=== PATIENT | female | born 2005 | race Caucasian/White ===

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

== ENCOUNTER 2025-03-04 15:32 | Emergency (ER) | payer BC, SELFPAY ==
[2025-03-04] VITALS (7 sets, daily range): BP systolic 94–118; BP diastolic 61–80; PULSE 78–93; RESP 17–18; TEMP 37.6–38.5; O2SAT 97–100; BMI 21.3
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
[2025-03-04] MEDS: 0.9% Normal Saline (1000mL) 1,000 ML 999 ML IV (16:08)
[2025-03-04 16:19] LABS: Hematocrit 43.2 % (37-47); Hemoglobin 14.4 g/dL (12.0-15.0); Immature Granulocytes Count 0.030 X10^3/uL (0.0-0.0); Mean Corp Hgb Conc 33.3 g/dL (32-36); Mean Corpuscular Volume 89.4 fL (81-99); Mean Platelet Vol. 10.3 fl (6.2-12.0); NRBC Flagged by Analyzer 0 % (0-5); Platelet Count 194 K/mm3 (150-450); RBC Distribution Width CV 11.7 % (11.6-14.6); RBC Distribution Width SD 38.1 fl (35.1-43.9); Red Blood Count 4.83 M/mm3 (4.2-5.4); White Blood Count 5.9 K/mm3 (4.4-11.0)
[2025-03-04 16:19] LABS: Mucous, Urine 0 SEEN /hpf (<or=2+)
[2025-03-04 16:20] LABS: Internal QC Validated? YES +Cl - CLEAR BKGD; Pregnancy, Serum, hCG Quali. NEGATIVE Negative; Record Kit Lot#, Serum Preg. 980607
[2025-03-04 16:28] LABS: Color, Urine Yellow (Yellow); Glucose, Dipstick Normal (Normal); Ketone-Dipstick 15 mg/dl (Negative); Leukocyte Esterase-Dipstick 500 /ul (Negative); Nitrite-Dipstick Negative (Negative); Occult Blood-Urine 50 /ul (Negative); Protein-Dipstick 100 mg/dl (Negative); Specific Gravity, Urine 1.025 (1.002-1.030); Urine Bilirubin Dipstick Negative (Negative)
--- OUTSIDE RECORDS SUMMARY | 2025-03-04 16:30 | XMS RPT_ITS | CCD ---
Author Organization [facility] Care Team Providers Care Relocation Counselor Name Role Phone Denzel Whalen MD Primary Care Provider Dr. Denzel Whalen Primary Care Provider Dr. Denzel Whalen Referring Provider CUONG Majano Attending Provider Denzel Whalen MD Primary Care Provider DENZEL WHALEN Primary Care Unavailable PROVIDER, UNKNOWN Referring Unavailable DENZEL WHALEN Primary Care Unavailable PROVIDER, UNKNOWN Attending Unavailable PROVIDER, UNKNOWN Admitting Unavailable Sementi, Cceilia Hennessy Admitting Unavaila ble Semenmark, Cecilia Hennessy Attending Unavaila ble Denzel Whalen Primary Care Unavailable Denzel Whalen Primary Care Unavailable Denzel Whalen Referring Unavailable Dorian Majano Attending Unavailable Cecilia Mcnamara Consulting Unavaila ble ChicAdriana brizuela Attending Unavailab le Adriana Bryant Referring Unavailab Denzel Reddy Primary Care Unavailable Denzel Whalen Primary Care Unavailable Adriana Bryant Attending Unavailab le Adriana Bryant Referring Unavailab Dr. Denzel Reddy Primary Care Provider Semenmark, Dr. Cecilia Hennessy Admit Provider Semenmark, Dr. Cecilia Hennessy Attending Provider Semenmark, Dr. Cecilia Hennessy Other Provider Unavailable Primary Care Provider Unavailabl e Provider, Unlisted Primary Care Provider Unavail able Denzel Whalen MD Primary Care Provider [facility] Referring Un available STRONG, DENZEL H Primary Care Unavailable CARMEN NOLASCO Attending Unavailabl e STRONG, DENZEL H Primary Care Unavailable ARIAN ANDRES Attending Unavailable STRONG, DENZEL H Primary Care Unavailable ARIAN ANDRES Attending Unavailable MARYLU BURTON Admitting Unavailable ARIAN BAIG Consulting Unavai ceciliale STRONG, DENZEL H Primary Care Unavailable HAWRYLUK, ARIAN Attending Unavailable STRONG, DENZEL H Primary Care Unavailable [place], [facility] Referring Un available ARIAN ANDRES Attending Unavailable STRONG, DENZEL H Primary Care Unavailable HAWRYLUK, ARIAN Attending Unavailable STRONG, DENZEL H Primary Care Unavailable Provider MD, Unlisted Primary Care Provider Unav ailable Karan [id number] PT, DPT, Charly Unavailable Puja vailable PROVIDER, UNLISTED Primary Care Unavailable PROVIDER, UNLISTED Primary Care Unavailable STRONG, DENZEL H Referring Unavailable PROVIDER, UNLISTED Primary Care Unavailable GEM HUTTON Attending Unavailable JAKE RIBEIRO Attending Unavailable JAKE RIBEIRO Referring Unavailable PROVIDER, UNLISTED Primary Care Unavailable JAKE RIBEIRO Attending Unavailable JAKE RIBEIRO Referring Unavailable PROVIDER, UNLISTED Primary Care Unavailable BARRIE ALDANA Attending Unavailable BARRIE ALDANA Referring Unavailable PROVIDER, UNLISTED Primary Care Unavailable JAKE RIBEIRO Attending Unavailable JAKE RIBEIRO Referring Unavailable PROVIDER, UNLISTED Primary Care Unavailable JESSICA GOULD Attending Unavailable JESSICA GOULD Referring Unavailable PROVIDER, UNLISTED Primary Care Unavailable JESSICA GOULD Attending Unavailable JESSICA GOULD Referring Unavailable PROVIDER, UNLISTED Primary Care Unavailable PROVIDER, UNLISTED Primary Care Unavailable JESSICA GOULD Attending Unavailable Denzel Whalen MD Primary Care Provider [phone] DANIKA MATA Attending Unavailable STRONG, DENZEL H Primary Care Unavailable EZEKIEL GONZALEZ Referring Unavailable JEOVANY LUBIN Attending Unavailable STRONG, DENZEL H Primary Care Unavailable ARIADNA BAILEY Attending Unavailable TRISTIANJEOVANY Referring Unavailable STRONG, DENZEL H Primary Care Unavailable FILIBERTO JIMENEZ Attending Unavailable STRONG, DENZEL H Primary Care Unavailable STRONG, DENZEL H Primary Care Unavailable WENDIE BERRY Referring Unavailable WENDIE BERRY Attending Unavailable STRONG, DENZEL H Primary Care Unavailable WENDIE BERRY Attending Unavailable EZEKIEL GONZALEZ Attending Unavailable STRONG, DENZEL H Referring Unavailable STRONG, DENZEL H Primary Care Unavailable EZEKIEL GONZALEZ Attending Unavailable STRONG, DENZEL H Referring Unavailable STRONG, DENZEL H Primary Care Unavailable STRONG DENZEL H Attending Unavailable STRONG, DENZEL H Primary Care Unavailable STRONG, DENZEL H Referring Unavailable DENZEL WHALEN Primary Care Unavailable Medications Current Medications Medication Drug Class(es) Dates Sig (Normalized) Sig (Original) acetaminophen 325 mg oral tablet (20 sources) Start: 05-13-2024 End: 05-13-2024 1,000 mg, Intravenous, Administer over 15 Minutes, On Sada 05/13/24 at 0834, ONCE, 1 dose Start: 05-10-2024 End: 05-10-2024 500 mg, Oral, NOW, 1 dose, O n 05/10/24 at 1959 Start: 04-02-2023 take 3 tablets by mo uth every six hours acetaminophen (TYLENOL) 325 mg tablet 3 tablets by ORAL/FEEDING TUBE route every 6 hours. 04/02/2023 Active Start: 04-02-2023 End: 04-10-2023 take 2 tablets by mouth every eight hours as needed for pain, then take 2 tablets by mouth every six hours as needed for pain Acetaminophen (Acetaminophen Extra Strength) 500 mg tablet Active 1000 MG PO EVERY 8 HOURS April 10, 2023 11:19am Continue every 8 hours until you have been off narcotics for 1 week and after 1 week you can take 1,000 mg every 6 hours as needed for pain. End: 06-09-2023 take 2 tablets by mouth every six hours as needed acetaminophen (TYLENOL) 325 mg tablet Take 650 mg by mouth every 6 hours as needed for pain. 0 06/09/2023 Discontinued Comment on above: 3 tablets by ORAL/FE EDING TUBE route every 6 hours. Take 650 mg by mouth every 6 hours as needed for pain. acetaminophen 325 mg / butalbital 50 mg / caffeine 40 mg oral tablet (3 sources) Barbiturate, Central Nervous System Stimulant, Methylxanthine Start: 024 End: 025 take 1 tablet by mouth every four hours as needed for headache, then take 6 tablets by mouth every twenty-four hours as needed for headache Ldwwqljtcp-ICXP-Ftpzx ine (FIORICET) 50-325-40 MG per tablet Indications: Nonintractable headache, unspecified chronicity pattern, unspecified headache type Take 1 tablet by mouth every 4 hours as needed for Headaches. Do Not exceed 6 tablets in 24 hours 30 tablet 07/17/2023 05/13/2024 Discontinued (Therapy completed) amoxicillin 875 mg / clavulanate 125 mg oral tablet (1 source) Penicillin-class Antibacterial Start: End: take 1 tablet by mouth twice daily amoxicillin-clavulani c acid (AUGMENTIN) 875-125 mg per tablet Indications: Sinusitis, unspecified chronicity, unspecified location Take 1 tablet by mouth twice daily for 5 days. 10 tablet 0 06/27/2022 07/02/2022 Active Comment on above: Take 1 tablet by tolu th twice daily for 5 days. diclofenac potassium 50 mg oral tablet (1 source) Nonsteroidal Anti-inflammatory Drug Start: take 50 mg by mouth twice daily at mealtime Diclofenac Potassium Active 50 MG PO TWICE A DAY April 10, 2023 12:00am Take with food doxycycline monohydrate 100 mg oral capsule (1 source) Tetracycline-class Drug Start: End: take 1 capsule by mouth twice daily doxycycline monohydrate (MONODOX) 100 mg capsule Indications: Chlamydia infection Take 1 capsule by mouth two times a day for 7 days. 14 capsule 11/24/2023 12/01/2023 Active fluticasone propionate 0.05 mg/actuat metered dose nasal spray (2 sources) Corticosteroid Start: End: take 2 spray(s) nasal route once daily fluticasone (FLONASE ALLERGY RELIEF) 50 mcg/actuation nasal spray Indications: Nasal congestion , Tonsillar hypertrophy Use 2 Sprays in each nostril once daily. 1 Each 2 06/27/2022 07/27/2022 Active Comment on above: Use 2 Sprays in each nostril once daily. Multiple Vitamins-Minerals (MULTI COMPLETE) CAPS (4 sources) Multiple Vitamins-Minerals (MULTI COMPLETE) CAPS Take by mouth. Active MULTIVITAMIN ORAL (20 sources) take 1 tablet by mouth once daily MULTIVITAMIN ORAL Take 1 tablet by mouth once daily. Active take 1 tablet by mouth once az y MULTIVITAMIN ORAL Take 1 tablet by mouth once daily. 0 Active MULTIVITAMIN ORA L Take by mouth. 0 Suspended MULTIVITAMIN ORA L Take by mouth. 0 Active Comment on above: Take by mouth. Take 1 tablet by tolu th once daily. [place] (Nk) (1 source) Start: 01-19-20 [place] (Nk) Active January 18, 2021 12:00am ondansetron 4 mg disintegrating oral tablet (9 sources) Serotonin-3 Receptor Antagonist Start: 05-13-19 take 1 tablet by mouth every eight hours as needed Ondansetron (ZOFRAN-ODT) 4 MG disintegrating tablet Take 1 tablet by mouth every 8 hours as needed for Nausea and/or Vomiting. Dissolve on tongue then swallow. 20 tablet 05/13/2024 Active Start: 05-13-2024 End: 05-13-2024 4 mg, IV Push, NOW, 1 dose, On Sada 05/13/24 at 0305, Caution: This medication looks and/or sounds like another medication. Start: 04-02-2023 End: 06-09-2023 take 4 mg intravenously every six hours as needed ondansetron, PF, (ZOFRAN) 4 mg/2 mL soln Inject 4 mg intravenously every 6 hours as needed. 0 04/02/2023 06/09/2023 Discontinued Start: 04-02-2023 End: 06-09-2023 take 1 tablet by mouth every six hours as needed ondansetron (ZOFRAN) 4 mg tablet Take 1 tablet by mouth every 6 hours as needed. 0 04/02/2023 06/09/2023 Discontinued Comment on above: Take 1 tablet by tolu every 6 hours as needed. Inject 4 mg intraven ously every 6 hours as needed. 12 hr orphenadrine citrate 100 mg extended release oral tablet (4 sources) Muscle Relaxant Start: 05-10-19 End: 05-15-19 take 1 tablet by mouth twice daily as needed orphenadrine (NORFLEX) 100 MG tablet Take 1 tablet by mouth 2 times daily as needed for up to 5 days. 10 tablet 05/10/2024 05/15/2024 Active oxyCODONE hydrochloride 5 mg oral tablet (3 sources) Opioid Agonist Start: 04-10-19 take 5 mg by mouth every four hours as needed Oxycodone Active 5 MG PO EVERY 4 HOURS NEEDED 30 7 April 10, 2023 Start: 04-10-2023 End: 06-09-2023 oxyCODONE 10 mg/0.5 mL syrg EVERY 4 HOURS NEEDED 0 04/10/2023 06/09/2023 Discontinued Comment on above: EVERY 4 HOURS NEE DED prednisoLONE 3 mg/ml oral solution (2 sources) Corticosteroid Start: 01-10-20 End: 01-15-20 take 15 mL by mouth once daily prednisoLONE sodium phosphate (ORAPRED) 15 mg/5 mL (3 mg/mL) oral liquid Take 15 mL by mouth once daily for 5 days. 75 mL 0 01/09/2022 01/14/2022 Active Comment on above: Take 15 mL by mouth once daily for 5 days. predniSONE 20 mg oral tablet (1 source) Start: 04-30-19 End: 05-03-19 take 2 tablets by mouth once daily predniSONE (DELTASONE) 20 mg tablet Indications: Tonsillar hypertrophy Take 2 tablets by mouth once daily for 3 days. 6 tablet 0 04/30/2022 05/03/2022 Active Comment on above: Take 2 tablets by [facility] once daily for 3 days. topiramate 100 mg oral tablet (20 sources) Start: 09-30-19 take 1 tablet by mouth once daily at bedtime topiramate (TOPAMAX) 100 mg tablet Take 1 tablet by mouth daily at bedtime. 90 tablet 3 09/29/2024 Active Start: 03-23-2024 End: 09-24-2024 take 1 tablet by mouth once daily at bedtime topiramate (TOPAMAX) 100 mg tablet Take 1 tablet by mouth daily at bedtime. 90 tablet 3 08/09/2024 09/24/2024 Discontinued Start: 08-19-2023 End: 06-18-2024 topiramate (TOPAMAX) 25 mg t ablet 25 mg (1 tab) at bed x 2 wks, then 50 mg at bed (2 tabs) x 2 wks, then 75 mg at bed (3 tabs) x 2 wks 84 tablet 08/19/2023 06/18/2024 Discontinued Start: 08-19-2023 End: 03-21-2024 take 1 tablet by mouth once daily at bedtime topiramate (TOPAMAX) 100 mg tablet Take 1 tablet by mouth daily at bedtime. 30 tablet 2 12/26/2023 03/21/2024 Discontinued Completed/Discontinued Medications Medication Drug Class(es) Dates Sig (Normalized) Sig (Original) acetaminophen 325 mg / HYDROcodone bitartrate 5 mg oral tablet (2 sources) Opioid Agonist Start: 02-24-2019 End: 03-04-2019 take 1-2 tablets by mouth every six hours as needed Hydrocodone-Acetami nophen Discontinued 1 - 2 TABLET PO EVERY 6 HOURS NEEDED 40 5 February 24, 2019 March 04, 2019 12:08am stop all other narcotics and tylenol products acetaminophen 325 mg / oxyCODONE hydrochloride 5 mg oral tablet (2 sources) Opioid Agonist Start: 05-12-2020 End: 05-17-2020 take 1 tablet by mouth every six hours as needed Oxycodone-Acetamino phen Discontinued 1 - 2 TABLET PO EVERY 6 HOURS NEEDED 28 May 12, 2020 May 17, 2020 12:03am azelaic acid 150 mg/ml topical foam (15 sources) Start: 03-22-2020 FINACEA 15 % foam as needed. 0 03/22/2020 Suspended Comment on above: as needed. bacitracin 0.5 unt/mg topical ointment (3 sources) Start: 04-02-2023 End: 06-09-2023 bacitracin 500 unit/gram ointment Apply to affected area two times a day. 0 04/02/2023 06/09/2023 Discontinued Start: 04-02-2023 End: 04-10-2023 Bacitracin Discontinued 1 AP PLIC TOPICAL TWICE A DAY April 02, 2023 12:00am April 10, 2023 11:08am Comment on above: Apply to affected ar ea two times a day. betamethasone 3 mg/ml / betamethasone acetate 3 mg/ml injectable suspension (2 sources) Corticosteroid Start: 10-01-2023 End: 10-01-2023 betamethasone acetate-betamethasone sodium phosphate 3 mg injection (CELESTONE) 30 ml bupivacaine hydrochloride 5 mg/ml injection (5 sources) Amide Local Anesthetic Start: 10-29-2023 End: 10-29-2023 BUPivacaine (PF) 0.5 % (5 mg/mL) 2 mL injection Start: 10-01-2023 End: 10-01-2023 BUPivacaine (PF) 0.5 % (5 mg /mL) 2 mL injection Start: 09-18-2022 End: 06-14-2023 BUPivacaine (PF) 0.5 % (5 mg /mL) 1 mL injection 1 ml dexamethasone phosphate 4 mg/ml injection (2 sources) Corticosteroid Start: 10-29-2023 End: 10-29-2023 dexAMETHasone sodium phosphate 4 mg injection (DECADRON) 0.3 ml enoxaparin sodium 100 mg/ml prefilled syringe (3 sources) Low Molecular Weight Heparin Start: 04-02-2023 End: 06-09-2023 inject 0.3 mL by subcutaneous injection twice daily enoxaparin (LOVENOX) 30 mg/0.3 mL injection Inject 0.3 mL subcutaneously two times a day. 0 04/02/2023 06/09/2023 Discontinued Start: 04-02-2023 End: 04-10-2023 Enoxaparin (Lovenox) 40 mg/0 .4 mL syringe Discontinued 40 MG SC DAILY April 02, 2023 12:00am April 10, 2023 11:08am Comment on above: Inject 0.3 mL subcutaneously two times a day. 1 ml galcanezumab-gn lm 120 mg/ml auto-injector (16 sources) Start: 02-08-20 End: 09-20-19 inject 1 mL by subcutaneous injection every month galcanezumab-gnlm (EMGALITY PEN) 120 mg/mL pen Indications: Intractable chronic migraine without aura and without status migrainosus Inject 1 mL subcutaneously once every month. Do not shake. 1 mL 5 03/23/2024 09/01/2024 Discontinued Start: 01-08-2024 End: 01-08-2024 galcanezumab-gnlm (EMGALITY PEN) 120 mg/mL pen Indications: Intractable chronic migraine without aura and without status migrainosus Inject 2 mL subcutaneously one time only for 1 dose. Do not shake. 2 mL 01/08/2024 01/08/2024 ibuprofen 200 mg oral tablet (5 sources) Nonsteroidal Anti-inflammatory Drug take 1 tablet by mouth every six hours as needed ibuprofen (MOTRIN IB) 200 mg tablet Take 200 mg by mouth every 6 hours as needed. 0 Suspended Comment on above: Take 200 mg by mouth every 6 hours as needed. 10 ml lidocaine hydrochloride 10 mg/ml injection (4 sources) Antiarrhythmic, Amide Local Anesthetic Start: 10-29-19 End: 07-24-20 24 lidocaine (PF) 10 mg/mL (1 %) 2 mL injection (XYLOCAINE) Start: 10-01-2023 End: 10-01-2023 lidocaine (PF) 10 mg/mL (1 % ) 2 mL injection (XYLOCAINE) meclizine hydrochloride 25 mg oral tablet (3 sources) Antiemetic Start: 04-02-2023 End: 06-09-2023 take 1 tablet by mouth three times daily meclizine (ANTIVERT) 25 mg tab Take 1 tablet by mouth three times a day. 0 04/02/2023 06/09/2023 Discontinued Comment on above: Take 1 tablet by tolu th three times a day. meloxicam 7.5 mg oral tablet (2 sources) Nonsteroidal Anti-inflammatory Drug Start: 04-29-2019 End: 04-20-2020 take 7.5 mg by mouth once daily Meloxicam Discontinued 7.5 MG PO DAILY April 29, 2019 12:00am April 20, 2020 9:03am metoclopramide 10 mg oral tablet (1 source) Dopamine-2 Receptor Antagonist Start: 05-13-2024 End: 05-13-2024 10 mg, Oral, NOW, 1 dose, On Sada 05/13/24 at 0834 Multivitamin With Minerals (2 sources) Start: 10-13-2018 End: 04-20-2020 Multivitamin With Minerals Discontinued 1 EACH PO DAILY October 12, 2018 11:00pm April 20, 2020 9:03am Start: 10-13-2018 End: 04-20-2020 Multivitamin With Minerals D iscontinued 1 EACH PO DAILY October 13, 2018 12:00am April 20, 2020 10:03am nortriptyline 10 mg oral capsule (16 sources) Tricyclic Antidepressant Start: 12-18-2023 End: 06-18-2024 take 1 capsule by mouth once daily at bedtime nortriptyline (PAMELOR) 10 mg capsule Take 1 capsule by mouth daily at bedtime. 30 capsule 2 12/18/2023 06/18/2024 Discontinued OXcarbazepine 150 mg oral tablet (6 sources) Anti-epileptic Agent Start: 06-18-2024 End: 09-16-2024 take 1 tablet by mouth twice daily OXcarbazepine (TRILEPTAL) 150 mg tablet Indications: Occipital neuralgia of left side Take 1 tablet by mouth two times a day. 60 tablet 2 06/18/2024 09/01/2024 Discontinued prochlorperazine 5 mg/ml injectable solution (2 sources) Phenothiazine Start: 04-02-2023 End: 06-09-2023 take 5 mg intravenously every six hours as needed prochlorperazine (COMPAZINE) 10 mg/2 mL (5 mg/mL) soln injection Inject 5 mg intravenously every 6 hours as needed. 0 04/02/2023 06/09/2023 Discontinued Comment on above: Inject 5 mg intraven ously every 6 hours as needed. propranolol hydrochloride 10 mg oral tablet (20 sources) beta-Adrenergic To Start: 04-10-2023 End: 06-18-2024 propranolol (INDERAL) 10 mg tablet 04/10/2023 06/18/2024 Discontinued Comment on above: TWICE A DAY rimegepant 75 mg disintegrating oral tablet (12 sources) Start: 08-19-2023 End: 01-08-2024 take 1 tablet by mouth once daily as needed rimegepant (NURTEC ODT) 75 mg disintegrating tablet Take 1 tablet by mouth once daily as needed. 8 tablet 2 08/19/2023 01/08/2024 Discontinued 50 ml sodium chloride 9 mg/ml injection (1 source) Start: 05-13-2024 End: 05-13-2024 1,000 mL, Intravenous, Administer over 31 Minutes, On Sada 05/13/24 at 0305, ONCE, 1 dose tiZANidine 2 mg oral tablet (20 sources) Central alpha-2 Adrenergic Agonist Start: 04-10-2023 End: 06-18-2024 tiZANidine (ZANAFLEX) 2 mg tablet 04/10/2023 06/18/2024 Discontinued Comment on above: TAKE 1-2 TABLETS BY MOUTH EVERY 8 HOURS NEEDED FOR MUSCLE SPASM traMADol hydrochloride 50 mg oral tablet (6 sources) Opioid Agonist Start: 10-22-2022 take 1 tablet by mouth every four hours as needed for pain traMADol (ULTRAM) 50 mg tablet Indications: Postoperative pain Take 1 tablet by mouth every 4 hours as needed for pain. 10 tablet 0 10/22/2022 Suspended Comment on above: Take 1 tablet by tolu th every 4 hours as needed for pain. triamcinolone acetonide 10 mg/ml injectable suspension (1 source) Corticosteroid Start: 09-18-2022 End: 09-18-2022 triamcinolone acetonide 10 mg injection (KeNALog 10) Start: 09-18-2022 End: 09-18-2022 triamcinolone acetonide 10 m g injection (KeNALog 10) Problems Active Problems Problem Classification Problem Date Documented Da te Episodic/Chronic Acute and chronic tonsillitis (2 sources) Hypertrophy of tonsils; Translations: [Hypertrophy of tonsils] Chronic Acute cerebrovascular disease (20 sources) Hematoma of subdural space of neuraxis; Translations: [Acute subdural hematoma] Onset: 03-22-2023 04-02-2023 Chronic Bacterial infection; unspecified site (1 source) Chlamydial infection; Translations: [Chlamydial infection, unspecified] 11-24-2023 Episodic Delirium, dementia, and amnestic and other cognitive disorders (20 sources) Unspecified mental disorder due to known physiological condition; Translations: [Cognitive disorder] Onset: 03-23-2023 04-02-2023 Chronic Headache; including migraine (20 sources) Migraine; Translations: [Migraine, unspecified, not intractable, without status migrainosus] Onset: 11-21-2016 11-21-2016 Chronic Headache; including migraine (1 source) Headache; including migraine; Translations: [Headache, unspecified] Onset: 07-17-2023 Immunizations and screening for infectious disease (5 sources) Patient encounter status; Translations: [Encounter for immunization] 11-30-2022 Episodic Nausea and vomiting (2 sources) Nausea and vomiting; Translations: [Nausea with vomiting, unspecified] Onset: 05-13-2024 05-13-2024 Episodic Other aftercare (1 source) Follow-up status; Translations: [Encounter for other orthopedic aftercare] 08-01-2020 Episodic Other connective tissue disease (2 sources) Other muscle spasm; Translations: [Spasm of muscle] Onset: 04-03-2023 04-10-2023 Episodic Other ear and sense organ disorders (1 source) Unspecified hearing loss, left ear; Translations: [Unspecified hearing loss, left ear] Onset: 04-03-2023 Chronic Other ear and sense organ disorders (20 sources) Acquired hearing loss; Translations: [Unspecified hearing loss, unspecified ear] Onset: 04-03-2023 04-02-2023 Chronic Other ear and sense organ disorders (1 source) Unspecified hearing loss, unspecified ear; Translations: [Late effect of fracture of multiple and unspecified bones] 04-10-2023 Chronic Other ear and sense organ disorders (20 sources) Mixed conductive and sensorineural hearing loss, unilateral, left ear, with unrestricted hearing on the contralateral side; Translations: [Mixed hearing loss, unilateral] Onset: 03-26-2023 03-26-2023 Chronic Other ear and sense organ disorders (1 source) Tinnitus of left ear; Translations: [Tinnitus, left ear] 06-09-2023 Episodic Other eye disorders (2 sources) Conjunctival hemorrhage, bilateral; Translations: [Conjunctival hemorrhage] Onset: 04-03-2023 04-10-2023 Episodic Other injuries and conditions due to external causes (1 source) Injury of head; Translations: [Unspecified injury of head, subsequent encounter] 11-17-2023 Episodic Other nervous system disorders (2 sources) Other specified disorders of brain; Translations: [Other conditions of brain] Onset: 04-03-2023 04-10-2023 Chronic Other nervous system disorders (20 sources) Pneumocephalus; Translations: [Other specified disorders of brain] Onset: 03-23-2023 04-02-2023 Chronic Other nervous system disorders (1 source) Other acute postprocedural pain; Translations: [Postoperative pain] Onset: 10-22-2022 Episodic Other nervous system disorders (2 sources) Paresthesia of skin; Translations: [Disturbance of skin sensation] Onset: 04-03-2023 04-10-2023 Episodic Other nervous system disorders (1 source) Allodynia; Translations: [Other disturbances of skin sensation] 05-04-2024 Episodic Other upper respiratory disease (1 source) Nasal congestion; Translations: [Nasal congestion] Episodic Other upper respiratory infections (1 source) Sinusitis; Translations: [Chronic sinusitis, unspecified] Chronic Other upper respiratory infections (3 sources) Pharyngitis; Translations: [Acute pharyngitis, unspecified] Episodic Residual codes; unclassified (1 source) Pain; Translations: [Pain, unspecified] 07-05-2022 Episodic Residual codes; unclassified (1 source) History of headache; Translations: [Personal history of other specified conditions] 05-13-2024 Episodic Residual codes; unclassified (1 source) Personal history of other specified conditions; Translations: [Personal history of other specified conditions] Onset: 05-13-2024 Episodic Sprains and strains (4 sources) Whiplash injury to neck; Translations: [Sprain of ligaments of cervical spine, initial encounter] Onset: 05-10-2024 04-10-2023 Episodic Unclassified (1 source) Unspecified intracranial injury with loss of consciousness status unknown, initial encounter; Translations: [Unspecified intracranial injury with loss of consciousness status unknown, initial encounter] Onset: 04-03-2023 Unclassified (1 source) Fracture of orbit, unspecified, initial encounter for closed fracture; Translations: [Fracture of orbit, unspecified, initial encounter for closed fracture] Onset: 04-03-2023 Unclassified (1 source) Traumatic subdural hemorrhage with loss of consciousness status unknown, initial encounter; Translations: [Traumatic subdural hemorrhage with loss of consciousness status unknown, initial encounter] Onset: 04-03-2023 Unclassified (1 source) New Patient Evaluation Onset: 04-15-2023 Viral infection (1 source) Viral disease; Translations: [Viral infection, unspecified] Episodic Past or Other Problems Problem Classification Problem Date Documented Date Episodic/Chronic Acquired foot deformities (20 sources) Talipes planus; Translations: [Flat foot [pes planus] (acquired), unspecified foot] Onset: 05-28-2019 05-28-2019 Episodic Administrative/social admission (3 sources) Special examination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 to page and reported to ED. Rfid Analyst asked nurse and registration for family and none were present at the time. Please call spiritual care as needed for patient or family. To contact the Spiritual Care Department: Please call [phone]. SIGNATURE: Chaplain Brady PATIENT NAME: Coleen Nieves DATE: March 22, 2023 TIME: 11:42 PM PAGER/CONTACT #: [phone] Normal [facility] CBC panel Auto (Bld)on 03-22 Erythrocyte distribution width (RBC) [Ratio] 11.7 % Normal 11.5-15.0 [facility] Comment on above: Order Comment: Speci men Type: BLOOD SPECIMEN Ordering Facility: [facility] Address: [address] [place] [address] Performed By: #### 2 777-1, 40066-7, 83044-0 #### [facility] CLIA [id number] [address] [place] [address] [place] [facility] Hematocrit (Bld) [Volume fraction] 41.0 % Normal 36.0-46.0 [facility] Comment on above: Order Comment: Speci men Type: BLOOD SPECIMEN Ordering Facility: [facility] Address: [address] [place] [address] Performed By: #### 2 777-1, , #### [facility] CLIA [id number] [address] [place] [facility] Hemoglobin (Bld) [Mass/Vol] 13.8 g/dL Normal 11.5-15.5 [facility] Comment on above: Order Comment: Speci men Type: BLOOD SPECIMEN Ordering Facility: [facility] Address: [address] [place] [address] Performed By: #### 2 777-1, , #### [facility] CLIA [id number] [address] MCH (RBC) [Entitic mass] 29.4 pg Normal 26.0-34.0 [facility] Comment on above: Order Comment: Speci men Type: BLOOD SPECIMEN Ordering Facility: [facility] Address: [address] [place] [address] Performed By: #### 2 777-1, , #### [facility] CLIA [id number] [address] OF [facility] MCHC (RBC) [Mass/Vol] 33.7 g/dL Normal 30.5-36.0 [facility] Comment on above: Order Comment: Speci men Type: BLOOD SPECIMEN Ordering Facility: [facility] Address: [address] [place] [address] Performed By: #### 2 777-1, , #### [facility] CLIA [id number] [address] OF [facility] MCV (RBC) [Entitic vol] 87.4 fL Normal 80.0-100.0 [facility] Comment on above: Order Comment: Speci men Type: BLOOD SPECIMEN Ordering Facility: [facility] Address: [address] [place] [address] Performed By: #### 2 777-1, , #### [facility] CLIA [id number] [address] [place] Nucleated RBC (Bld) [#/Vol] 10*3/uL Normal <0.01 [facility] Comment on above: Order Comment: Speci men Type: BLOOD SPECIMEN Ordering Facility: [facility] Address: [address] [place] [address] Performed By: #### 2 777-1, 05586-2, #### [facility] CLIA [id number] [address] [place] Platelet mean volume (Bld) [Entitic vol] 9.4 fL Normal 9.0-12.7 [facility] Comment on above: Order Comment: Speci men Type: BLOOD SPECIMEN Ordering Facility: [facility] Address: [address] [place] [address] Performed By: #### 2 777-1, 14424-1, #### [facility] CLIA [id number] [address] Platelets (Bld) [#/Vol] 444 10*3/uL High 150-400 [facility] Comment on above: Order Comment: Speci men Type: BLOOD SPECIMEN Ordering Facility: [facility] Address: [address] [place] [address] Performed By: #### 2 777-1, 82515-2, #### [facility] CLIA [id number] [address] [place] RBC (Bld) [#/Vol] 4.69 10*6/uL Normal 3.90-5.20 [facility] Comment on above: Order Comment: Speci men Type: BLOOD SPECIMEN Ordering Facility: [facility] Address: [address] [place] [address] Performed By: #### 2 777-1, 75826-9, #### [facility] CLIA [id number] [address] [place] WBC (Bld) [#/Vol] 12.39 10*3/uL High 3.70-11.00 [facility] Comment on above: Order Comment: Speci men Type: BLOOD SPECIMEN Ordering Facility: [facility] Address: [place] [address] Performed By: #### 2 777-1, 67330-4, 56644-0 #### [facility] CLIA [id number] [address] [place] [address] [place] ABD/PEL W IVCONon 023 CT ABD/PEL W IVCON * * *Final Report* * * DATE OF EXAM: Mar 22 2023 11:43PM [facility] 0530 - CT ABD/PEL W IVCON / PROCEDURE REASON: Abdominal pain, acute (Ped 0-18y) * * * * Physician Interpretation * * * * EXAMINATION: CT ABDOMEN AND PELVIS WITH IV CONTRAST CLINICAL HISTORY: Abdominal trauma TECHNIQUE: CT of the abdomen and pelvis was performed using standard technique, scanning from just above the dome of the diaphragm to the symphysis pubis. MQ: CTAP_3 Contrast: IV: 100 ml of Omnipaque 350 : ml of CT Radiation dose: Integrated Dose-length product (DLP) for this visit = 1521 mGy*cm. CT Dose Reduction Employed: Automated exposure control(AEC) and iterative recon COMPARISON: None. RESULT: Liver: No mass. Biliary: No bile duct dilation. Spleen: No mass. No splenomegaly. Pancreas: No mass or duct dilation. Adrenals: No mass. Kidneys: No mass, calculus or hydronephrosis. GI tract: No dilation or wall thickening. Normal appendix Lymph nodes: No abdominal or pelvic lymphadenopathy. Mesentery/Peritoneum : No ascites or mass. Retroperitoneum: No mass. Vasculature: Unremarkable Pelvis: No mass, ascites or fluid collection. Bones/Soft Tissues: No significant finding. Lower thorax: Unremarkable. Budget Accountant (topogram) images: Unremarkable. IMPRESSION: No acute intra-abdominal or pelvic process identified. 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: PSCB Transcribe Date/Time: Mar 22 2023 11:54P Dictated by : ISABEL LOUIS MD This examination was interpreted and the report reviewed and electronically signed by: ISABEL LOUIS MD on Mar 22 2023 11:57PM EST [id number] CN Normal [facility] CT BRAIN WO IVCONon 03-22-[address] BRAIN WO IVCON * * *Final Report* * * DATE OF EXAM: Mar 22 2023 11:37PM [facility] 0504 - CT BRAIN WO IVCON / PROCEDURE REASON: Facial trauma, blunt * * * * Physician Interpretation * * * * EXAMINATION: CT FACIAL BONE/FLORENCE WO IVCON, CT CERVICAL SPINE WO IVCON, CT BRAIN WO IVCON CLINICAL HISTORY: Facial trauma, blunt (accession [id number]), Spine fracture, cervical, traumatic (accession [id number]), Facial trauma, blunt (accession [id number]) TECHNIQUE: Serial axial images without IV contrast were obtained from the vertex to the foramen magnum, maxillofacial region and cervical spine. CT Dose-Length Product (DLP): 1582 mGy*cm CT Dose Reduction Employed: Automated exposure control(AEC) and iterative recon COMPARISON: None. RESULT: Head CT and maxillofacial CT Soft tissues: Left frontal scalp laceration is with overlying scalp hematoma and emphysema which extends into the inferior paranasal soft tissues. There is also left orbital soft tissue swelling as well as emphysema which tracks along the bilateral temporal musculature, left medial butter liquefier space, left recommend soft tissues and infranasal soft tissues secondary to fractures described below. Bones: Acute left paramedian frontal calvarial fracture is mildly displaced and extends inferiorly through the anterior and posterior tables of the left frontal sinus and inferiorly to the left nasal orbital-ethmoidal (SIMÓN) complex where there are also moderately comminuted and mildly displaced SIMÓN complex fractures as well as a mildly comminuted and displaced fractures of the right nasal bones and mildly comminuted and displaced fractures of the superior nasal septum. Trace emphysema adjacent to the anterior nasal spine of the maxilla without definite fracture. Fracture through the left squamosal temporal bone extends posteriorly through the left mastoid temporal bone and anteriorly through the left sphenotemporal sutures into the left sphenoid wing, along the skull base inferiorly to the left foramen ovale. Fracture also involves the left foramen rotundum, lateral wall of the left sphenoid sinus and left lateral orbital wall. The left ossicular chain is grossly intact. No appreciable pneumo-labyrinth. Moreover, temporal bone CT could better characterize. Fracture through the right squamosal temporal bone extends inferiorly into the right sphenoid wing. There are mildly comminuted and displaced fractures along the planum ethmoidalis bilaterally and likely for performed place. Fracture through the planum sphenoidale on the right extends inferiorly along the posterior wall the right sphenoid sinus to the right petrous carotid canal. Additional fractures are present along the floor of the right sphenoid sinus. Right orbital fractures include: Fracture through the right superolateral orbital rim which is minimally displaced as well as a mildly comminuted and displaced fracture through the posterior orbital roof, right inferior orbital rim and orbital floor with involvement of the canal and foramen for the right infraorbital nerve and. Additional multislice fractures of the left superior lamina papyracea. Left orbital fractures include: Mildly displaced left superolateral orbital rim with diastases of the zygomaticofrontal suture, mildly comminuted and displaced fractures along the left lateral orbital wall, lamina papyracea and inferior orbital rim with involvement of the canal for the left foraminal nerve. Maxillary sinus fractures include: Mildly comminuted and displaced fractures along the anterior ortiz of both maxillary sinuses and along the posterior and medial ortiz of the left maxillary sinus. The left zygomatic arch and pterygoid plates are otherwise intact. Post-operative change: None. Acute change/hemorrhage: There are acute bilateral orbitofrontal hemorrhagic contusions with largest contusion in the left inferomedial frontal lobe which measures 1.5 cm. There is additional small bilateral anteroinferior frontal subarachnoid hemorrhage , trace parafalcine subdural hematoma along the anterior inferior frontal interhemispheric fissure. Suspect small bilateral extra-axial hematomas along the temporal convexities. Small associated foci of scattered pneumocephalus primarily along the bilateral frontal and left temporal convexities secondary to fractures. Subtle hypodensities in the bilateral occipital lobes may be artifactual or possibly reflect contrecoup contusions. There is no significant mass effect. Chronic change: None apparent. Parenchyma: There is no significant volume loss. Ventricles: The ventricles are within normal limits of size and configuration for age. Paranasal sinuses: The sinuses are opacified with hemorrhage. Orbits: Orbital fractures as described above. There is small extraconal hemorrhage and emphysema (left greater than right). No extraocular muscle herniation. Globes and le (more content not included)... Invalid Interpretation Code [facility] CT CERVICAL SPINE WO IVCONon 03-22-2023 CT CERVICAL SPINE WO IVCON * * *Final Report* * * DATE OF EXAM: Mar 22 2023 11:37PM [facility] 0505 - CT CERVICAL SPINE WO IVCON / PROCEDURE REASON: Spine fracture, cervical, traumatic * * * * Physician Interpretation * * * * EXAMINATION: CT FACIAL BONE/FLORENCE WO IVCON, CT CERVICAL SPINE WO IVCON, CT BRAIN WO IVCON CLINICAL HISTORY: Facial trauma, blunt (accession [id number]), Spine fracture, cervical, traumatic (accession [id number]), Facial trauma, blunt (accession [id number]) TECHNIQUE: Serial axial images without IV contrast were obtained from the vertex to the foramen magnum, maxillofacial region and cervical spine. CT Dose-Length Product (DLP): 1582 mGy*cm CT Dose Reduction Employed: Automated exposure control(AEC) and iterative recon COMPARISON: None. RESULT: Head CT and maxillofacial CT Soft tissues: Left frontal scalp laceration is with overlying scalp hematoma and emphysema which extends into the inferior paranasal soft tissues. There is also left orbital soft tissue swelling as well as emphysema which tracks along the bilateral temporal musculature, left medial butter liquefier space, left recommend soft tissues and infranasal soft tissues secondary to fractures described below. Bones: Acute left paramedian frontal calvarial fracture is mildly displaced and extends inferiorly through the anterior and posterior tables of the left frontal sinus and inferiorly to the left nasal orbital-ethmoidal (SIMÓN) complex where there are also moderately comminuted and mildly displaced SIMÓN complex fractures as well as a mildly comminuted and displaced fractures of the right nasal bones and mildly comminuted and displaced fractures of the superior nasal septum. Trace emphysema adjacent to the anterior nasal spine of the maxilla without definite fracture. Fracture through the left squamosal temporal bone extends posteriorly through the left mastoid temporal bone and anteriorly through the left sphenotemporal sutures into the left sphenoid wing, along the skull base inferiorly to the left foramen ovale. Fracture also involves the left foramen rotundum, lateral wall of the left sphenoid sinus and left lateral orbital wall. The left ossicular chain is grossly intact. No appreciable pneumo-labyrinth. Moreover, temporal bone CT could better characterize. Fracture through the right squamosal temporal bone extends inferiorly into the right sphenoid wing. There are mildly comminuted and displaced fractures along the planum ethmoidalis bilaterally and likely for performed place. Fracture through the planum sphenoidale on the right extends inferiorly along the posterior wall the right sphenoid sinus to the right petrous carotid canal. Additional fractures are present along the floor of the right sphenoid sinus. Right orbital fractures include: Fracture through the right superolateral orbital rim which is minimally displaced as well as a mildly comminuted and displaced fracture through the posterior orbital roof, right inferior orbital rim and orbital floor with involvement of the canal and foramen for the right infraorbital nerve and. Additional multislice fractures of the left superior lamina papyracea. Left orbital fractures include: Mildly displaced left superolateral orbital rim with diastases of the zygomaticofrontal suture, mildly comminuted and displaced fractures along the left lateral orbital wall, lamina papyracea and inferior orbital rim with involvement of the canal for the left foraminal nerve. Maxillary sinus fractures include: Mildly comminuted and displaced fractures along the anterior ortiz of both maxillary sinuses and along the posterior and medial ortiz of the left maxillary sinus. The left zygomatic arch and pterygoid plates are otherwise intact. Post-operative change: None. Acute change/hemorrhage: There are acute bilateral orbitofrontal hemorrhagic contusions with largest contusion in the left inferomedial frontal lobe which measures 1.5 cm. There is additional small bilateral anteroinferior frontal subarachnoid hemorrhage , trace parafalcine subdural hematoma along the anterior inferior frontal interhemispheric fissure. Suspect small bilateral extra-axial hematomas along the temporal convexities. Small associated foci of scattered pneumocephalus primarily along the bilateral frontal and left temporal convexities secondary to fractures. Subtle hypodensities in the bilateral occipital lobes may be artifactual or possibly reflect contrecoup contusions. There is no significant mass effect. Chronic change: None apparent. Parenchyma: There is no significant volume loss. Ventricles: The ventricles are within normal limits of size and configuration for age. Paranasal sinuses: The sinuses are opacified with hemorrhage. Orbits: Orbital fractures as described above. There is small extraconal hemorrhage and emphysema (left greater than right). No extraocular muscle h (more content not included)... Invalid Interpretation Code [facility] CT CHEST W IVCONon 3 CT CHEST W IVCON * * *Final Report* * * DATE OF EXAM: Mar 22 2023 11:43PM [facility] 0539 - CT CHEST W IVCON / PROCEDURE REASON: Chest trauma, blunt * * * * Physician Interpretation * * * * EXAMINATION: CHEST CT WITH CONTRAST CLINICAL HISTORY: Blunt chest trauma Technique: Spiral CT acquisition of the chest from the thoracic inlet to the upper abdomen following IV contrast. MQ: CTCW_6 Contrast: 100 mL Omnipaque [address] Radiation dose: Integrated Dose-length product (DLP) for this visit = 1521 mGy*cm CT Dose Reduction Employed: Automated exposure control(AEC) and iterative recon Comparison: Type of study and date/time RESULT: Limitations: None. Lines, tubes, and devices: None. Lung parenchyma and airways: No consolidation. No suspicious pulmonary nodule. The central airways are patent. Pleural space: No pleural effusion. No pleural thickening. Lower neck, lymph nodes, and mediastinum: The imaged thyroid gland is normal. No lymphadenopathy in the supraclavicular, axillary, mediastinal, or hilar regions. Heart, pericardium, and thoracic vessels: The thoracic aorta and main pulmonary artery are normal in caliber. The cardiac chambers are normal in size. No coronary artery atherosclerotic calcifications are noted, although the study is not optimized for coronary assessment. No pericardial effusion or thickening. Bones and soft tissues: No destructive bone lesion. Chest wall is unremarkable. Upper abdomen: No abnormality in the imaged upper abdomen. Budget Accountant (topogram) images: Unremarkable. IMPRESSION: No CT evidence of acute abnormality. 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: KELECHI Transcribe Date/Time: Mar 22 2023 11:52P Dictated by : ISABEL LOUIS MD This examination was interpreted and the report reviewed and electronically signed by: ISABEL LOUIS MD on Mar 22 2023 11:54PM EST [id number] CN Normal [facility] CT FACIAL BONE/FLORENCE WO IVCON on 03-22-2023 CT FACIAL BONE/FLORENCE WO IVCON * * *Final Report* * * DATE OF EXAM: Mar 22 2023 11:37PM [facility] 0507 - CT FACIAL BONE/[place]OR[place] WO IVCON / PROCEDURE REASON: Facial trauma, blunt * * * * Physician Interpretation * * * * EXAMINATION: CT FACIAL BONE/[place]ORENCE WO IVCON, CT CERVICAL SPINE WO IVCON, CT BRAIN WO IVCON CLINICAL HISTORY: Facial trauma, blunt (accession [id number]), Spine fracture, cervical, traumatic (accession [id number]), Facial trauma, blunt (accession [id number]) TECHNIQUE: Serial axial images without IV contrast were obtained from the vertex to the foramen magnum, maxillofacial region and cervical spine. CT Dose-Length Product (DLP): 1582 mGy*cm CT Dose Reduction Employed: Automated exposure control(AEC) and iterative recon COMPARISON: None. RESULT: Head CT and maxillofacial CT Soft tissues: Left frontal scalp laceration is with overlying scalp hematoma and emphysema which extends into the inferior paranasal soft tissues. There is also left orbital soft tissue swelling as well as emphysema which tracks along the bilateral temporal musculature, left medial butter liquefier space, left recommend soft tissues and infranasal soft tissues secondary to fractures described below. Bones: Acute left paramedian frontal calvarial fracture is mildly displaced and extends inferiorly through the anterior and posterior tables of the left frontal sinus and inferiorly to the left nasal orbital-ethmoidal (SIMÓN) complex where there are also moderately comminuted and mildly displaced SIMÓN complex fractures as well as a mildly comminuted and displaced fractures of the right nasal bones and mildly comminuted and displaced fractures of the superior nasal septum. Trace emphysema adjacent to the anterior nasal spine of the maxilla without definite fracture. Fracture through the left squamosal temporal bone extends posteriorly through the left mastoid temporal bone and anteriorly through the left sphenotemporal sutures into the left sphenoid wing, along the skull base inferiorly to the left foramen ovale. Fracture also involves the left foramen rotundum, lateral wall of the left sphenoid sinus and left lateral orbital wall. The left ossicular chain is grossly intact. No appreciable pneumo-labyrinth. Moreover, temporal bone CT could better characterize. Fracture through the right squamosal temporal bone extends inferiorly into the right sphenoid wing. There are mildly comminuted and displaced fractures along the planum ethmoidalis bilaterally and likely for performed place. Fracture through the planum sphenoidale on the right extends inferiorly along the posterior wall the right sphenoid sinus to the right petrous carotid canal. Additional fractures are present along the floor of the right sphenoid sinus. Right orbital fractures include: Fracture through the right superolateral orbital rim which is minimally displaced as well as a mildly comminuted and displaced fracture through the posterior orbital roof, right inferior orbital rim and orbital floor with involvement of the canal and foramen for the right infraorbital nerve and. Additional multislice fractures of the left superior lamina papyracea. Left orbital fractures include: Mildly displaced left superolateral orbital rim with diastases of the zygomaticofrontal suture, mildly comminuted and displaced fractures along the left lateral orbital wall, lamina papyracea and inferior orbital rim with involvement of the canal for the left foraminal nerve. Maxillary sinus fractures include: Mildly comminuted and displaced fractures along the anterior ortiz of both maxillary sinuses and along the posterior and medial ortiz of the left maxillary sinus. The left zygomatic arch and pterygoid plates are otherwise intact. Post-operative change: None. Acute change/hemorrhage: There are acute bilateral orbitofrontal hemorrhagic contusions with largest contusion in the left inferomedial frontal lobe which measures 1.5 cm. There is additional small bilateral anteroinferior frontal subarachnoid hemorrhage , trace parafalcine subdural hematoma along the anterior inferior frontal interhemispheric fissure. Suspect small bilateral extra-axial hematomas along the temporal convexities. Small associated foci of scattered pneumocephalus primarily along the bilateral frontal and left temporal convexities secondary to fractures. Subtle hypodensities in the bilateral occipital lobes may be artifactual or possibly reflect contrecoup contusions. There is no significant mass effect. Chronic change: None apparent. Parenchyma: There is no significant volume loss. Ventricles: The ventricles are within normal limits of size and configuration for age. Paranasal sinuses: The sinuses are opacified with hemorrhage. Orbits: Orbital fractures as described above. There is small extraconal hemorrhage and emphysema (left greater than right). No extraocular muscle herniation. Gl (more content not included)... Invalid Interpretation Code [facility] CT LUMBAR SPINE W RECON DATA -NBon 03-22-2023 CT LUMBAR SPINE W RECON DATA -NB * * *Final Report* * * DATE OF EXAM: Mar 22 2023 11:49PM [facility] 0481 - CT LUMBAR SPINE W RECON DATA -NB / PROCEDURE REASON: Back trauma, no prior imaging (Age >= 16y) * * * * Physician Interpretation * * * * EXAMINATION: CT T-SPINE W RECON DATA -NB, CT LUMBAR SPINE W RECON DATA -NB CLINICAL HISTORY: Back trauma, no prior imaging (Age >= 16y) TECHNIQUE: Spiral, high resolution axial unenhanced images were obtained from the cervicothoracic junction to the sacrum with sagittal and coronal planar reconstructions. MQ: CTTLWO_3 CT Radiation dose: Integrated Dose-Length Product (DLP) for this visit = 0.0 mGy*cm. CT Dose Reduction Employed: Automated exposure control(AEC) and iterative recon COMPARISON: None. RESULT: THORACIC: Budget Accountant (topogram) images: Unremarkable. Alignment: Alignment is anatomic. Bone marrow / fracture: No evidence of a lytic or blastic process in the visualized spine. No evidence of acute or chronic fracture. Thoracic soft tissues: The paraspinal soft tissues planes are maintained. Canal and foramina: The bony thoracic canal and foramina are patent. LUMBAR: Counting reference: Cervicothoracic and lumbosacral junctions. Assume first thoracic rib is the T1 level. For the purposes of this report, L4-5 is considered the level of the iliac crest and assume there are 5 lumbar-type vertebrae. Anatomic variant: None. Budget Accountant (topogram) images: Unremarkable. Alignment: Alignment is anatomic. Bone marrow / fracture: No evidence of a lytic or blastic process in the visualized spine. No evidence of acute or chronic fracture. Paraspinal soft tissues: The paraspinal soft tissues planes are maintained. L1-L2: Canal and foramina are patent. L2-L3: Canal and foramina are patent L3-L4: Canal and foramina are patent L4-L5: Canal and foramina are patent L5-S1: Canal and foramina are patent Sacrum and iliac wings: The visualized sacrum and iliac wings are within normal limits. The presacral soft tissues are normal in appearance. IMPRESSION: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 as of 10/04/22: 177.8 cm (5' 10). Weight as of 10/04/22: 79.4 kg (175 lb). Most recent hematocrit and potassium results: Hematocrit 42.4 01/09/2022 Potassium 4.0 07/08/2017 Relevant Problems CARDIO (+) Migraine NEURO-PSYCH (+) Migraine I - PHYSICAL EVALUATION AIRWAY Patient intubated: No. Tracheostomy tube not present Mallampati: II. TM distance: >3 FB. Neck ROM: full ROM without neurological symptoms. Mouth opening: adequate. Short neck: no. Thick neck: no DENTAL Dental findings: teeth intact. Additional exam findings: yes. CARDIOVASCULAR Rhythm: regular PULMONARY Breath sounds clear to auscultation. II - ANESTHESIA PLAN ASA Score: 2 Anesthetic Plan: general Airway type: LMA The patient is a current smoker. NPO Status: adequate Anesthetic plan additional comments: Smokes marijuana. Beta To Monitoring Plan Monitoring plan: Standard ASA. Post Procedure Analgesic Plan Postoperative analgesic plan: parenteral or oral opioids and multimodal analgesia. Informed Consent Anesthetic risks, benefits, alternatives, personnel and consent discussed: yes. Patient / Responsible Republican agrees to proceed: yes Patient / Surrogate agrees to blood products: yes DNR status not reviewed with patient and/or family prior to surgery. Significant changes in the patient condition since the History and Physical, not otherwise documented in primary service progress note: no. Potential Anesthesia issues that may suggest increased risk of complications or contraindication to planned procedure: none. No vitals data found for the desired time range. Facility-Administere d Medications as of 10/22/2022 Medication Dose Route Frequency - lidocaine (PF) 10 mg/mL (1 %) 1-2 mg injection (XYLOCAINE) 0.1-0.2 mL INTRADERMAL PRN - lactated ringers iv infusion 5-30 mL/hr INTRAVENOUS CONTINUOUS - NaCl 0.9% iv flush bag 20 mL INTRAVENOUS PRN - ceFAZolin iv piggyback 2 g in D5W (iso-osmotic) 100 mL (ANCEF) 2 g INTRAVENOUS Pre-Op Once - acetaminophen 1,000 mg tab(s) (TYLENOL) 1,000 mg ORAL Pre-Op Once - promethazine 12.5 mg tab(s) (PHENERGAN) 12.5 mg ORAL Pre-Op Once Outpatient Medications as of 10/22/2022 Medication Sig - FINACEA 15 % foam as needed. I have interviewed and examined the patient. I have reviewed the medical record and/or the pre-anesthesia evaluation, pertinent labs, and test results. This contains updated information obtained within 48 hours of Surgery/Procedure. SIGNATURE: Tiffani Posadas MD PATIENT NAME: Coleen Nieves DATE: October 22, 2022 TIME: 8:21 AM CSN: [id number] [facility] OPERATIVE NOon 10-22-2022 OPERATIVE NO HNO ID: [id number] Author: Adriana Bryant DO Service: Orthopaedic Surgery Author Type: Physician Type: Operative Report Filed: 10/22/2022 1:44 PM Note Text: OPERATIVE/PROCEDURE REPORT LOG ID: [id number] SURGERY/PROCEDURE DATE: 10/22/2022 INCISION/PROCEDURE START TIME: 9:47 AM INCISION CLOSE/PROCEDURE END TIME: 10:49 AM SURGEON(S)/PROCEDURA LIST(S) AND BRICKMASON HELPER(S): Surgeon(s) and Role: * Adriana Bryant DO - Primary Physician Hris Specialist: Mendy Garg PA-C Registered Nurse Air Tester: Melia Copeland RN SURGERY/PROCEDURE(S) : Right knee arthroscopy, lateral meniscus repair, extensive synovectomy ANESTHESIA: General SURGERY/PROCEDURE DETAILS: Preop note Patient is an 17-year-old female with anterior lateral knee pain has had meniscus repair in the past. Risk benefits and alternatives were discussed with patient patient failed conservative treatment MRI concerning for retear versus previously healed meniscus but due to the fact that she has little bit of downtime and still having some flares of the right knee would like to get this addressed sooner than later. Again risk-benefit and alternatives discussed alternatives surgery were discussed with patient risk include not limited to blood loss, blood clot, infection, neurovascular injury, failure procedure, loss of life and loss of limb. Patient is aware of the accuracy with right knee arthroscopy repair as indicated. Operative Patient seen and examined probable area. The knee was marked. The patient was brought to the operating room placed supine on the operative table. [place], anesthesia, antibiotics were administered. Right leg was prepped and draped in sterile technique with a tourniquet on the upper thigh. All bony prominences were well-padded and SCDs placed on her contralateral limb. Use her previous anterior lateral anteromedial portals were marked her leg was then elevated Sanguily needed and turn was raised for pressure 250 torr. Timeout performed. There is a 11 blade to create our anterior lateral portal. The patellofemoral joint was unremarkable. Within there were no loose bodies in the medial lateral recesses. We then moved to the anteromedial joint line creating anteromedial portal under direct visualization. The medial joint line the medial tibial plateau and medial femoral condyle were all intact and probing. The ACL PCL present within the notch. We then moved to the lateral side the previous repair was noted to be healed there was some slight tearing just anterior and lateral to the popliteus tendon so we did rasp this area and placed 2 all inside Castro AND Nephew FasT-Fix reverse curve devices good excellent repair stability afterwards. The anterior horn which was then repaired in the past was intact. Patient had extensive synovitis anterior lateral anterior medial and this of the joint was resected with a shaver. We flexed The needed further showed that there was no impingement of the Hoffa syndrome which there was not. The lateral femoral condyle had a 1.8 x 1.2 cm chondral lesion not down to bone but quite unstable cartilage pieces of them gently trim back as well we did then take a biopsy within the notch of the cartilage on the nonpoint nonweightbearing portion and sent this to [place] for further evaluation and growth. Did discuss with mom that she does not have to have a transplantation now but if worsening would necessarily be a candidate after her playing days were done in college. The right knee was irrigated with copious amounts of sterile saline, the portals were closed sterile dressings and a T ROM was placed on the right lower extremity. Patient tolerated procedure well no complications transfer recovery room in stable condition Postoperative note Patient is able to be 40% weightbearing as not a lot of stress and was a good repair so we will progress her to 40% weightbearing as tolerated for 6 weeks versus less than that which is what I normally do Elevate ice ankle pumps Discussed with mom on phone Pain medication sent Comment: Please note this report has been produced using speech recognition software and may contain errors related to that system including errors in grammar, punctuation, and spelling, as well as words and phrases that may be inappropriate. If there are any questions or concerns please feel free to contact the dictating provider for clarification. PRE-OP/PRE-PROCEDURE DIAGNOSIS: right knee hoffas syndrome, h/o lateral meniscus repair POST-OP/POST-PROCEDU RE DIAGNOSIS: Same as Preop ESTIMATED BLOOD LOSS: 0 ml SPECIMENS: None IMPLANTABLE DEVICES: Implant Name Type Inv. Item Serial No. Collision Repair Technician Lot No. LRB No. Used Action DEVICE FAST-FIX 360D REVERSE CURVE FIXATION MENISCAL REPAIR SYSTEM - [id number] Implant DEVICE FAST-FIX 360D REVERSE CURVE FIXATION MENISCAL REPAIR SYSTEM [employer]STR[employer]PHEW ENDOSCOPY [id number] [facility] (more content not included)... Normal [facility] Lower Ext Joint Only (Routin e)on 08-31-2022 Lower Ext Joint Only (Routine) [facility] Imaging Services [address] [place] [address] Lower Ext Joint Only (Routine) MR#: [id number] Acct: [id number] Name: COLEEN NIEVES Rep #: [id number] : 2005 F 17 From: Martín Holloway MD PCP: Dr. Denzel Whalen MD Status: REG CLI Study: Lower Ext Joint Only (Routine) Date of Exam: 0 08/31/22 Exam# [id number] Ordering Dr: Adriana Bryant STUDY: MRI RIGHT KNEE REASON FOR EXAM: Female, 17 years old. Pain. Prior surgery. TECHNIQUE: Standardized fat and water weighted pulse sequences were obtained in all 3 orthogonal planes. COMPARISON: April 25, 2020 FINDINGS: Normal medial meniscus. Normal hyaline cartilage of the medial femorotibial compartment. Normal medial femoral condyle and tibial plateau. Normal medial collateral ligamentous complex (MCL). Normal distal semimembranosus, gracilis and semitendinosus tendons. There is loss of substance of the lateral meniscus with prior meniscectomy. There is a focal irregularity with tears of the anterior and posterior horn, series 8 images 32/41 through 36/41. There is focal, greater than 50% thickness articular cartilage loss of the lateral femorotibial compartment. Normal lateral femoral condyle and tibial plateau. Normal proximal tibiofibular articulation. Normal lateral collateral (fibular) ligament. Normal popliteus tendon. Normal biceps femoris tendon. Normal anterior cruciate ligament (ACL). Normal posterior cruciate ligament (PCL). Normal congruent patellofemoral articulation. Normal hyaline cartilage of the patellofemoral compartment. Normal medial and lateral patellar retinaculum. Normal quadriceps tendon. Normal patellar tendon. Normal Hoffa''s fat pad. There is a moderate volume joint effusion. The soft tissues are unremarkable. The otherwise visualized osseous structures are unremarkable. MRI/Lower Ext Joint Only (Routine) IMPRESSION: Postoperative change. Lateral meniscus tears. Thinning of the lateral cartilage. Joint effusion. Electronically Signed: Martín Holloway MD at 10:41 EDT , CC: Dr. Adriana Bryant DO; Dr. Denzel Whalen MD 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: Signed [facility] 07-05-2022 ALLIED HEALTH HNO ID: [id number] Author: RT Ana(R) Service: ? Author Type: Scrubbing Machine Operator Type: [facility] Filed: 07/05/2022 12:14 PM Note Text: Radiology Service Progress Note PATIENT NAME: Coleen Nieves DATE OF SERVICE: July 05, 2022 TIME: 12:13 PM PATIENT IDENTITY VERIFICATION COMPLETED USING TWO (2) IDENTIFIERS: Name and Date of confirmed by patient verbally. FALL SCREENING: Has the patient had 2 falls in the last year or 1 fall with injury or currently using an Ambulatory Assistive Device (Walker, Cane, Wheelchair, Crutches, etc.)? No PATIENT GENDER DATA: Female. status: : No status: NO. PATIENT RELEVANT IMPLANT DATA REVIEWED: Not Applicable RADIOLOGY DEPARTMENT: General X-ray: Exam(s) Completed: Lower Extremity X-Ray(s): Knee, AP / Lat / Tunne / Merchant Right PERIPHERAL IV DATA: Not applicable SIGNED BY: RT Ana(R) July 05, 2022 12:13 PM [facility] XR KNEE 4V AP/PA BOTH+LAT/ME R RTon 07-05-2022 XR KNEE 4V AP/PA BOTH+LAT/BEVERLEY RT * * *Final Report* * * DATE OF EXAM: Jul 05 2022 11:42AM GORDY 5203 - XR KNEE 4V AP/PA BOTH+LAT/BEVERLEY RT / PROCEDURE REASON: [id number] * * * * Physician Interpretation * * * * TECHNIQUE: XR KNEE 4V AP/PA BOTH+LAT/BEVERLEY RT HISTORY: 17 years Female Pain COMPARISON: None RESULT: The bone alignment and joint spaces are normal. A fracture is not identified. No osteochondral lesion. Normal patellar alignment. Normal bone mineralization. Moderate suprapatellar effusion and medial knee soft tissue swelling. IMPRESSION: Moderate suprapatellar effusion and medial knee soft tissue swelling. 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: KELECHI Transcribe Date/Time: Jul 05 2022 12:09P Dictated by : REGINE FIERRO MD This examination was interpreted and the report reviewed and electronically signed by: REGINE FIERRO MD on Jul 05 2022 12:10PM EST [id number] [facility] XR Knee - right 4 Viewson IMPRESSION: Moderate suprapatellar effusion and medial knee soft tissue swelling. 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[facility] Transcribe Date/Time: Jul 05 2022 12:09P Dictated by : REGINE FIERRO MD This examination was interpreted and the report reviewed and electronically signed by: REGINE FIERRO MD on Jul 05 2022 12:10PM EST [facility] * * *Final Report* * * DATE OF EXAM: Jul 05 2022 11:42AM GORDY 5203 - XR KNEE 4V AP/PA BOTH+LAT/BEVERLEY RT / PROCEDURE REASON: [id number] * * * * Physician Interpretation * * * * TECHNIQUE: XR KNEE 4V AP/PA BOTH+LAT/BEVERLEY RT HISTORY: 17 years Female Pain COMPARISON: None RESULT: The bone alignment and joint spaces are normal. A fracture is not identified. No osteochondral lesion. Normal patellar alignment. Normal bone mineralization. Moderate suprapatellar effusion and medial knee soft tissue swelling. [facility] Provider, [facility] [place] - 07/05/2022 * * *Final Report* * * DATE OF EXAM: Jul 05 2022 11:42AM G[facility] 5203 - XR KNEE 4V AP/PA BOTH+LAT/BEVERLEY RT / PROCEDURE REASON: [id number] * * * * Physician Interpretation * * * * TECHNIQUE: XR KNEE 4V AP/PA BOTH+LAT/BEVERLEY RT HISTORY: 17 years Female Pain COMPARISON: None RESULT: The bone alignment and joint spaces are normal. A fracture is not identified. No osteochondral lesion. Normal patellar alignment. Normal bone mineralization. Moderate suprapatellar effusion and medial knee soft tissue swelling. IMPRESSION IMPRESSION: Moderate suprapatellar effusion and medial knee soft tissue swelling. 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: KELECHI Transcribe Date/Time: Jul 05 2022 12:09P Dictated by : REGINE FIERRO MD This examination was interpreted and the report reviewed and electronically signed by: REGINE FIERRO MD on Jul 05 2022 12:10PM EST [facility] Radiology Study observation (narrative) [facility] XR Knee - right 4 ViewsOrder ed By: Cc Provider on 07-05-2022 [facility] Urgent Care Visit Reporton 0 05-27-2022 Urgent Care Visit Report [facility] [address] [place] [address] OFFICE VISIT Date of Service: 05/27/22 MR#: [id number] Acct: [id number] Name: COLEEN NIEVES Rep #: [id number] : 2005 Provider: CUONG campos Age/Sex: 16/F [facility] Status: Signed Intake Vital Signs 01/18/21 14:48 Height 5 ft 10 in Intake Visit Reasons: SPORTS PHYSICAL Allergies No Known Allergies Allergy (Verified 01/18/21 14:50) [facility] Medical History (Updated 05/27/22 @ 14:07 by CUONG Castro) Migraines Routine sports physical exam Social History Smoking Status: Never smoker HPI HPI Details: COLEEN NIEVES, is a 16 F who presents to the office today for Office Procedures Physical Exam Coding PE Coding Sports/School Physical: Yes DOT PE: No Pre-employment PE: No Coding Level of Care Code No Charge Diagnoses Routine sports physical exam Z02.5 CPT Codes PE Coding - Sports/School Physical: Yes (79681) Assessment and Plan Assessment and Plan (1) Routine sports physical exam: Status: Acute 05/27/22 1407 Date Dorian Herman Signature: Date (if applicable) CC: Normal [facility] STREP A MOLECULAR (POC)on Procedural Control Valid [facility] Strep A (POCT) Negative Negative [facility] ALT/SGPTon 01-10-2022 ALT [Catalytic activity/Vol] 11 U/L 7 - 38 U/L [facility] AST/SGOT BLDon 01-10-2022 AST [Catalytic activity/Vol] 15 U/L 13 - 35 U/L [facility] CBC W Auto Differential pane l (Bld)on 01-09-2022 Abs Immature Gran 0.04 k/uL High <0.04 k/uL [facility] Basophils (Bld) [#/Vol] 0.03 10*3/uL <0.11 k/uL [facility] Basophils/100 WBC (Bld) 0.3 % [facility] Differential cell count method Nom (Bld) Auto [facility] Eosinophils (Bld) [#/Vol] 0.09 10*3/uL <0.46 k/uL [facility] Eosinophils/100 WBC (Bld) 0.9 % [facility] Erythrocyte distribution width (RBC) [Ratio] 11.7 % 11.5 - 15.0 % [facility] Hematocrit (Bld) [Volume fraction] 42.4 % 36.0 - 46.0 % [facility] Hemoglobin (Bld) [Mass/Vol] 13.9 g/dL 11.5 - 15.5 g/dL [facility] Immature Gran % 0.4 % [facility] Lymphocytes (Bld) [#/Vol] 2.31 10*3/uL 1.00 - 4.00 k/uL [facility] Lymphocytes/100 WBC (Bld) 21.9 % [facility] MCH (RBC) [Entitic mass] 29.4 pg 26.0 - 34.0 pg [facility] MCHC (RBC) [Mass/Vol] 32.8 g/dL 30.5 - 36.0 g/dL [facility] MCV (RBC) [Entitic vol] 89.6 fL 80.0 - 100.0 fL [facility] Monocytes (Bld) [#/Vol] 0.82 10*3/uL <0.87 k/uL [facility] Monocytes/100 WBC (Bld) 7.8 % [facility] Neutrophils (Bld) [#/Vol] 7.26 10*3/uL 1.45 - 7.50 k/uL [facility] Neutrophils/100 WBC (Bld) 68.7 % [facility] Nucleated RBC (Bld) [#/Vol] <0.01 k/uL [facility] Nucleated RBC/100 WBC (Bld) [Ratio] 0.0 /100 WBC [facility] Platelet mean volume (Bld) [Entitic vol] 10.3 fL 9.0 - 12.7 fL [facility] Platelets (Bld) [#/Vol] 384 10*3/uL 150 - 400 k/uL [facility] RBC (Bld) [#/Vol] 4.73 10*6/uL 3.90 - 5.2 0 m/uL [facility] WBC (Bld) [#/Vol] 10.55 10*3/uL 3.70 - 11 .00 k/uL [facility] MONOTEST, INFECTIOUS MONOon 01-09-2022 Heterophile Ab LA Ql (S) Negative Negative [facility] STREP A MOLECULAR (POC)on Procedural Control Valid [facility] Strep A (POCT) Negative Negative [facility] Large Joint Arthro/Inj [facility] Vital Signs Date Time Vital Sign Value Performing Clinician Facility 09-01-2024 12:54-0400 Body height 172.7 cm Wendie Berry MD Work Phone: [facility] Comment on above: per patient 09-01-2024 12:54-0400 Body mass index (BMI) [Ratio] 19.77 kg/m2 Wendie Berry MD Work Phone: [facility] 09-01-2024 12:54-0400 Body temperature 97.9 [degF] Wendie Berry MD Work Phone: [facility] 09-01-2024 12:54-0400 Body weight 58.97 kg Wendie Berry MD Work Phone: [facility] Comment on above: per patient 09-01-2024 12:54-0400 Diastolic blood pressure 69 mm[Hg] Wendie Berry MD Work Phone: [facility] 09-01-2024 12:54-0400 Heart rate 69 /min Wendie Berry MD Work Phone: [facility] 09-01-2024 12:54-0400 Respiratory rate 20 /min Wendie Berry MD Work Phone: [facility] 09-01-2024 12:54-0400 SaO2% (BldA) [Mass fraction] 98 % Wendie Berry MD Work Phone: [facility] 09-01-2024 12:54-0400 Systolic blood pressure 103 mm[Hg] Wendie Berry MD Work Phone: [facility] 06-18-2024 14:08-0400 Body height 172.7 cm Wendie Berry MD Work Phone: [facility] 06-18-2024 14:08-0400 Body mass index (BMI) [Ratio] 19.77 kg/m2 Wendie Berry MD Work Phone: [facility] 06-18-2024 14:08-0400 Body temperature 97.81 [degF] Wendie Berry MD Work Phone: [facility] 06-18-2024 14:08-0400 Body weight 58.97 kg Wendie Berry MD Work Phone: [facility] 06-18-2024 14:08-0400 Diastolic blood pressure 60 mm[Hg] Wendie Berry MD Work Phone: [facility] 06-18-2024 14:08-0400 Heart rate 84 /min Wendie Berry MD Work Phone: [facility] 06-18-2024 14:08-0400 Respiratory rate 16 /min Wendie Berry MD Work Phone: [facility] 06-18-2024 14:08-0400 SaO2% (BldA) [Mass fraction] 100 % Wendie Berry MD Work Phone: [facility] 06-18-2024 14:08-0400 Systolic blood pressure 110 mm[Hg] Wendie Berry MD Work Phone: [facility] 05-13-2024 09:32-0500 Diastolic blood pressure 64 mm[Hg] Unlisted Provider [facility] 05-13-2024 09:32-0500 Systolic blood pressure 102 mm[Hg] Unlisted Provider [facility] 05-13-2024 08:24-0500 Body temperature 98.71 [degF] Unlisted Provider [facility] 05-13-2024 08:24-0500 Heart rate 69 /min Unlisted Provider [employer] [facility] 05-13-2024 08:24-0500 Respiratory rate 15 /min Unlisted Provider [facility] 05-13-2024 08:24-0500 SaO2% (BldA) [Mass fraction] 100 % Unlisted Provider [facility] 05-13-2024 02:17-0500 Body height 172.7 cm Unlisted Provider [facility] 05-13-2024 02:17-0500 Body mass index (BMI) [Ratio] 19.77 kg/m2 Unlisted Provider [facility] 05-13-2024 02:17-0500 Body weight 58.97 kg Unlisted Provider [facility] 05-10-2024 19:23-0500 Body height 175.3 cm Jessica Gould MD Work Phone: [facility] 05-10-2024 19:23-0500 Body mass index (BMI) [Ratio] 20.67 kg/m2 Jessica Gould MD Work Phone: [facility] 05-10-2024 19:23-0500 Body temperature 98.29 [degF] Jessica Gould MD Work Phone: [facility] 05-10-2024 19:23-0500 Body weight 63.5 kg Jessica Gould MD Work Phone: [facility] 05-10-2024 19:23-0500 Diastolic blood pressure 70 mm[Hg] Jessica Gould MD Work Phone: [facility] 05-10-2024 19:23-0500 Heart rate 105 /min Jessica Gould MD Work Phone: [facility] 05-10-2024 19:23-0500 Respiratory rate 18 /min Jessica Gould MD Work Phone: [facility] 05-10-2024 19:23-0500 SaO2% (BldA) [Mass fraction] 100 % Jessica Gould MD Work Phone: [facility] 05-10-2024 19:23-0500 Systolic blood pressure 119 mm[Hg] Jessica Gould MD Work Phone: [facility] 05-04-2024 14:29-0500 Diastolic blood pressure 67 mm[Hg] Filiberto Jimenez MD Work Phone: [facility] 05-04-2024 14:29-0500 Heart rate 79 /min Filiberto Jimenez MD Work Phone: [facility] 05-04-2024 14:29-0500 SaO2% (BldA) [Mass fraction] 96 % Filiberto Jimenez MD Work Phone: [facility] 05-04-2024 14:29-0500 Systolic blood pressure 105 mm[Hg] Filiberto Jimenez MD Work Phone: [facility] 04-09-2024 10:40-0500 Body height 170.8 cm Ariadna Bailey APRN.CLEARANCE REPRESENTATIVE Work Phone: [facility] 04-09-2024 10:40-0500 Body mass index (BMI) [Ratio] 21.73 kg/m2 Ariadna Bailey APRN.CLEARANCE REPRESENTATIVE Work Phone: [facility] 04-09-2024 10:40-0500 Body temperature 97.81 [degF] Koli Green CHILD CARE CENTRE MANAGER.CLEARANCE REPRESENTATIVE Work Phone: [facility] 04-09-2024 10:40-0500 Body weight 63.4 kg Koli Green CHILD CARE CENTRE MANAGER.CLEARANCE REPRESENTATIVE Work Phone: [facility] 04-09-2024 10:40-0500 Diastolic blood pressure 58 mm[Hg] Koli Green CHILD CARE CENTRE MANAGER.CLEARANCE REPRESENTATIVE Work Phone: [facility] 04-09-2024 10:40-0500 Heart rate 66 /min Koli Green CHILD CARE CENTRE MANAGER.CLEARANCE REPRESENTATIVE Work Phone: [facility] 04-09-2024 10:40-0500 Systolic blood pressure 91 mm[Hg] Koli Green CHILD CARE CENTRE MANAGER.CLEARANCE REPRESENTATIVE Work Phone: [facility] 01-08-2024 17:04-0400 Diastolic blood pressure 67 mm[Hg] Jeovany Lubin MD Work Phone: [facility] 01-08-2024 17:04-0400 Heart rate 91 /min Jeovany Lubin MD Work Phone: [facility] 01-08-2024 17:04-0400 SaO2% (BldA) [Mass fraction] 97 % Jeovany Lubin MD Work Phone: [facility] 01-08-2024 17:04-0400 Systolic blood pressure 101 mm[Hg] Jeovany Lubin MD Work Phone: [facility] 11-20-2023 16:07-0400 Body height 172.4 cm Denzel Whalen MD Work Phone: [facility] 11-20-2023 16:07-0400 Body mass index (BMI) [Ratio] 22.28 kg/m2 Denzel Whalen MD Work Phone: [facility] 11-20-2023 16:07-0400 Body temperature 98.4 [degF] Denzel Whalen MD Work Phone: [facility] 11-20-2023 16:07-0400 Body weight 66.22 kg Denzel Whalen MD Work Phone: [facility] 11-20-2023 16:07-0400 Diastolic blood pressure 62 mm[Hg] Denzel Whalen MD Work Phone: [facility] 11-20-2023 16:07-0400 Heart rate 68 /min Denzel Whalen MD Work Phone: [facility] 11-20-2023 16:07-0400 Respiratory rate 14 /min Denzel Whalen MD Work Phone: [facility] 11-20-2023 16:07-0400 Systolic blood pressure 116 mm[Hg] Denzel Whalen MD Work Phone: [facility] 09-22-2023 09:09-0400 Body temperature 97.11 [degF] Denzel Whalen MD Work Phone: [facility] 09-22-2023 09:09-0400 Body weight 72.94 kg Denzel Whalen MD Work Phone: [facility] 09-22-2023 09:09-0400 Diastolic blood pressure 78 mm[Hg] Denzel Whalen MD Work Phone: [facility] 09-22-2023 09:09-0400 Heart rate 72 /min Denzel Whalen MD Work Phone: [facility] 09-22-2023 09:09-0400 Respiratory rate 20 /min Denzel Whalen MD Work Phone: [facility] 09-22-2023 09:09-0400 Systolic blood pressure 108 mm[Hg] Denzel Whalen MD Work Phone: [facility] 08-19-2023 06:55-0400 Body weight 77.11 kg Danika Mata PA-C Work Phone: [facility] 08-19-2023 06:55-0400 Diastolic blood pressure 65 mm[Hg] Danika Doyleer PA-C Work Phone: [facility] 08-19-2023 06:55-0400 Heart rate 80 /min Danika Doyleer PA-C Work Phone: [facility] 08-19-2023 06:55-0400 Respiratory rate 16 /min Danika HUTCHINS-C Work Phone: [facility] 08-19-2023 06:55-0400 SaO2% (BldA) [Mass fraction] 99 % Danika Mata PA-C Work Phone: [facility] 08-19-2023 06:55-0400 Systolic blood pressure 97 mm[Hg] Danika HUTCHINS-Nuzhat Work Phone: [facility] 08-15-2023 10:40-0400 Body weight 77.47 kg Arian Andres MD, PhD Work Phone: [facility] 08-15-2023 10:40-0400 Diastolic blood pressure 64 mm[Hg] Arian Andres MD, PhD Work Phone: [facility] 08-15-2023 10:40-0400 Heart rate 78 /min Arian Andres MD, PhD Work Phone: [facility] 08-15-2023 10:40-0400 Respiratory rate 16 /min Arian Andres MD, PhD Work Phone: [facility] 08-15-2023 10:40-0400 SaO2% (BldA) [Mass fraction] 99 % Arian Andres MD, PhD Work Phone: [facility] 08-15-2023 10:40-0400 Systolic blood pressure 114 mm[Hg] Arian Andres MD, PhD Work Phone: [facility] 07-17-2023 10:01-0400 Body height 175.[address] [facility] 07-17-2023 10:01-0400 Body mass index (BMI) [Ratio] 25.1 kg/m2 Unlisted Provider [facility] 07-17-2023 10:01-0400 Body temperature 97.5 [degF] Unlisted Provider [facility] 07-17-2023 10:01-0400 Body weight 77.[address] [facility] 07-17-2023 10:01-0400 Diastolic blood pressure 105 mm[Hg] Unlisted Provider [facility] 07-17-2023 10:01-0400 Heart rate 78 /min Unlisted Provider [facility] 07-17-2023 10:01-0400 Respiratory rate 18 /min Unlisted Provider [facility] 07-17-2023 10:01-0400 SaO2% (BldA) [Mass fraction] 98 % Unlisted Provider [facility] 07-17-2023 10:01-0400 Systolic blood pressure 144 mm[Hg] Unlisted Provider [facility] 06-09-2023 11:05-0500 Body height 172.7 cm Arian Andres MD, PhD Work Phone: [facility] 06-09-2023 11:05-0500 Body mass index (BMI) [Percentile] Per age and sex 84.11 % Arian Andres MD, PhD Work Phone: [facility] 06-09-2023 11:05-0500 Body weight 77.11 kg Arian Andres MD, PhD Work Phone: [facility] 06-09-2023 11:05-0500 Diastolic blood pressure 69 mm[Hg] Arian Andres MD, PhD Work Phone: [facility] 06-09-2023 11:05-0500 Heart rate 88 /min Arian Andres MD, PhD Work Phone: [facility] 06-09-2023 11:05-0500 SaO2% (BldA) [Mass fraction] 97 % Arian Andres MD, PhD Work Phone: [facility] 06-09-2023 11:05-0500 Systolic blood pressure 102 mm[Hg] Arian Andres MD, PhD Work Phone: [facility] 04-10-2023 13:45-0500 Body temperature 97.3 [degF] Dr. Denzel Whalen Work Phone: [facility] 04-10-2023 13:45-0500 Diastolic blood pressure 66 mm[Hg] Dr. Denzel Whalen Work Phone: [facility] 04-10-2023 13:45-0500 Heart rate 77 /min Dr. Denzel Whalen Work Phone: [facility] 04-10-2023 13:45-0500 Respiratory rate 15 /min Dr. Denzel Whalen Work Phone: [facility] 04-10-2023 13:45-0500 SaO2% (BldA) [Mass fraction] 99 % Dr. Denzel Whalen Work Phone: [phone] [place] [address] 04-10-2023 13:45-0500 Systolic blood pressure 106 mm[Hg] Dr. Denzel Whalen Work Phone: [facility] 04-09-2023 06:00-0500 Body mass index (BMI) [Percentile] Per age and sex 72.9 % Dr. Denzel Whalen Work Phone: [phone] [address] 04-09-2023 06:00-0500 Body mass index (BMI) [Ratio] 23.8 kg/m2 Dr. Denzel Whalen Work Phone: 1(467)[phone] [address] 04-09-2023 06:00-0500 Body weight 71.[address] Denzel Whalen Work Phone: [facility] 04-02-2023 14:03-0500 Body height 172.[address] Denzel Whalen Work Phone: [facility] 11-18-2022 15:58-0400 Body height 173 cm Denzel Whalen MD Work Phone: [facility] 11-18-2022 15:58-0400 Body mass index (BMI) [Percentile] Per age and sex 88.18 % Denzel Whalen MD Work Phone: [facility] 11-18-2022 15:58-0400 Body temperature 98.49 [degF] Denzel Whalen MD Work Phone: [facility] 11-18-2022 15:58-0400 Body weight 80.11 kg Denzel Whalen MD Work Phone: [facility] 11-18-2022 15:58-0400 Diastolic blood pressure 72 mm[Hg] Denzel Whalen MD Work Phone: [facility] 11-18-2022 15:58-0400 Heart rate 60 /min Denzel Whalen MD Work Phone: [facility] 11-18-2022 15:58-0400 Respiratory rate 16 /min Denzel Whalen MD Work Phone: [facility] 11-18-2022 15:58-0400 Systolic blood pressure 106 mm[Hg] Denzel Whalen MD Work Phone: [facility] 10-04-2022 12:47-0400 Body height 177.8 cm Pacc 2 Work Phone: [facility] 10-04-2022 12:47-0400 Body mass index (BMI) [Percentile] Per age and sex 82 % Pacc 2 Work Phone: [facility] 10-04-2022 12:47-0400 Body weight 79.38 kg Pacc 2 Work Phone: [facility] 10-04-2022 12:47-0400 Heart rate 84 /min Pacc 2 Work Phone: [facility] 10-04-2022 12:47-0400 Respiratory rate 18 /min Pacc 2 Work Phone: [facility] 06-27-2022 14:29-0400 Body temperature 98.29 [degF] Tierra Gaffney CHILD CARE CENTRE MANAGER.CLEARANCE REPRESENTATIVE Work Phone: [facility] 06-27-2022 14:29-0400 Body weight 81.42 kg Tierra Gaffney CHILD CARE CENTRE MANAGER.CLEARANCE REPRESENTATIVE Work Phone: [facility] 06-27-2022 14:29-0400 Diastolic blood pressure 84 mm[Hg] Tierra Gaffney CHILD CARE CENTRE MANAGER.CLEARANCE REPRESENTATIVE Work Phone: [facility] 06-27-2022 14:29-0400 Heart rate 100 /min Tierra Gaffney CHILD CARE CENTRE MANAGER.CLEARANCE REPRESENTATIVE Work Phone: [facility] 06-27-2022 14:29-0400 Respiratory rate 20 /min Tierra Gaffney CHILD CARE CENTRE MANAGER.CLEARANCE REPRESENTATIVE Work Phone: [facility] 06-27-2022 14:29-0400 Systolic blood pressure 120 mm[Hg] Tierra Gaffney CHILD CARE CENTRE MANAGER.CLEARANCE REPRESENTATIVE Work Phone: [facility] 04-30-2022 12:26-0500 Body temperature 97.9 [degF] Denzel Whalen MD Work Phone: [facility] 04-30-2022 12:26-0500 Body weight 82.56 kg Denzel Whalen MD Work Phone: [facility] 04-30-2022 12:26-0500 Heart rate 80 /min Denzel Whalen MD Work Phone: [facility] 04-30-2022 12:26-0500 Respiratory rate 14 /min Denzel Whalen MD Work Phone: [facility] 01-09-2022 11:28-0400 Body temperature 97.39 [degF] Denzel Whalen MD Work Phone: [facility] 01-09-2022 11:28-0400 Body weight 84.03 kg Denzel Whalen MD Work Phone: [facility] 01-09-2022 11:28-0400 Heart rate 82 /min Denzel Whalen MD Work Phone: [facility] 01-09-2022 11:28-0400 Respiratory rate 16 /min Denzel Whalen MD Work Phone: [facility] 01-07-2022 10:11-0400 Body temperature 99.1 [degF] Giovani Baron CHILD CARE CENTRE MANAGER.CLEARANCE REPRESENTATIVE Work Phone: [facility] 01-07-2022 10:11-0400 Body weight 84.37 kg Giovani Baron CHILD CARE CENTRE MANAGER.CLEARANCE REPRESENTATIVE Work Phone: [facility] 01-07-2022 10:11-0400 Diastolic blood pressure 78 mm[Hg] Giovani Baron CHILD CARE CENTRE MANAGER.CLEARANCE REPRESENTATIVE Work Phone: [facility] 01-07-2022 10:11-0400 Heart rate 88 /min Giovani Baron CHILD CARE CENTRE MANAGER.CLEARANCE REPRESENTATIVE Work Phone: [facility] 01-07-2022 [id number] Respiratory rate 18 /min Giovani Baron CHILD CARE CENTRE MANAGER.CLEARANCE REPRESENTATIVE Work Phone: [facility] 01-07-2022 10:11-0400 SaO2% (BldA) [Mass fraction] 99 % Giovani Baron CHILD CARE CENTRE MANAGER.CLEARANCE REPRESENTATIVE Work Phone: [facility] 01-07-2022 10:11-0400 Systolic blood pressure 110 mm[Hg] Giovani Baron CHILD CARE CENTRE MANAGER.CLEARANCE REPRESENTATIVE Work Phone: [facility] Encounters Encounter Date Encounter Type Care Provider Facility Start: 09-24-2024 End: 09-29-2024 Refill Koli Green CHILD CARE CENTRE MANAGER.CLEARANCE REPRESENTATIVE Work Phone: Neurology Comment on above: Refill Request Start: 09-16-2024 End: 09-21-2024 Telephone encounter Denzel Whalen MD Work Phone: [facility] Comment on above: medical form Start: 09-01-2024 End: 09-01-2024 Patient encounter procedure Wendie Berry MD Work Phone: Pain Management Comment on above: Occipital neuralgia of left side (Primary Dx) Start: 09-01-2024 End: 09-01-2024 ambulatory DENZEL WHALEN Facility:[facility] Start: 08-08-2024 End: 08-09-2024 Refill Koli Green CHILD CARE CENTRE MANAGER.CLEARANCE REPRESENTATIVE Work Phone: Neurology Comment on above: Refill Request Start: 06-30-2024 End: 06-30-2024 Refill Danika Mata PA-C Work Phone: Neurology Comment on above: Refill Request Start: 06-22-2024 End: 08-13-2024 ambulatory Denzel Whalen MD Work Phone: [facility] [place] Comment on above: Disability Verificat ion Form [facility] Whalen to fill please Start: 06-18-2024 End: 06-18-2024 ambulatory DENZEL WHALEN Facility:[facility] Start: 06-18-2024 End: 06-18-2024 Patient encounter procedure Wendie Berry MD Work Phone: [facility] Management Comment on above: Occipital neuralgia of left side (Primary Dx) Start: 06-16-2024 End: 06-16-2024 Telephone encounter Filiberto Jimenez MD Work Phone: [facility] Start: 05-27-2024 ambulatory [facility] Start: 05-20-2024 End: 05-20-2024 ambulatory [facility] Start: 05-20-2024 End: 05-20-2024 Subsequent hospital visit by physician Jake Ribeiro APRN CLEARANCE REPRESENTATIVE Work Phone: [facility] Comment on above: Arrived Start: 05-13-2024 End: 05-13-2024 [facility] Start: 05-13-2024 End: 05-13-2024 Subsequent hospital visit by physician Jake Ribeiro APRN CLEARANCE REPRESENTATIVE Work Phone: [facility] Comment on above: Arrived Start: 05-13-2024 End: 05-13-2024 Emergency department patient visit UNLISTED PROVIDER [facility] Comment on above: Nausea and vomiting, unspecified vomiting type (Primary Dx); History of headache Start: 05-10-2024 End: 05-10-2024 Emergency department patient visit Jessica Gould MD Work Phone: [facility] Comment on above: Acute strain of neck muscle, initial encounter (Primary Dx); Concussion without loss of consciousness, initial encounter Start: 05-04-2024 End: 05-04-2024 ambulatory FILIBERTO JIMENEZ Facility:[facility] Start: 05-04-2024 End: 05-04-2024 Patient encounter procedure Filiberto Jimenez MD Work Phone: [facility] Management Comment on above: Occipital neuralgia of left side (Primary Dx); Cervicogenic headache; Fracture of skull and facial bones (HCC); Allodynia; Neck pain on left side Start: 04-30-2024 End: 04-30-2024 Telephone encounter Filiberto Jimenez MD Work Phone: [facility] Start: 04-29-2024 End: 04-29-2024 E-mail encounter from caregiver [facility] Start: 04-29-2024 End: 04-29-2024 Patient encounter procedure [facility] Comment on above: Appointment Reschedu le Notification Start: 04-29-2024 End: 04-29-2024 Telephone encounter Filiberto Jimenez MD Work Phone: [facility] Start: 04-12-2024 End: 04-12-2024 Telephone encounter Ariadna Bailey APRN.CLEARANCE REPRESENTATIVE Work Phone: Neurology Comment on above: Referral Request; Francisco tox Injection Start: 04-09-2024 End: 04-09-2024 ambulatory ARIADNA BAILEY Facility:[facility] Start: 04-09-2024 End: 04-09-2024 Patient encounter procedure Ariadna Bailey APRN.CLEARANCE REPRESENTATIVE Work Phone: Neurology [facility] Comment on above: Occipital neuralgia of left side; Cervicalgia; Intractable chronic migraine without aura and without status migrainosus Start: 03-21-2024 End: 03-23-2024 Refill Danika Mata PA-C Work Phone: Neurology Comment on above: Refill Request Start: 01-09-2024 End: 01-09-2024 ambulatory No Pcp CHILD CARE CENTRE MANAGER [facility] Start: 01-09-2024 End: 01-09-2024 Patient encounter procedure No Pcp CHILD CARE CENTRE MANAGER [facility] Start: 01-08-2024 End: 01-08-2024 ambulatory EZEKIEL GONZALEZ Facility:[facility] Start: 01-08-2024 End: 01-08-2024 Office outpatient new 45 minutes Jeovany Lubin MD Work Phone: Neurology [facility] Comment on above: Cervicalgia (Primary Dx); Occipital neuralgia of left side; Intractable chronic migraine without aura and without status migrainosus Start: 01-02-2024 End: 01-14-2024 Refill Danika Mata PA-C Work Phone: Neurology Comment on above: Refill Request Start: 12-25-2023 End: 12-26-2023 Get Medical Advice Danika Mata PA-C Work Phone: Neurology Comment on above: Topiramate refill Start: 12-24-2023 End: 12-25-2023 Refill Danika Mata PA-C Work Phone: Neurology Comment on above: Refill Request Start: 12-18-2023 End: 12-18-2023 ambulatory Danika Mata PA-C Work Phone: Neurology Comment on above: Intractable chronic migraine with aura and without status migrainosus (Primary Dx); Other headache syndrome; Cervicogenic headache Start: 12-18-2023 End: 12-18-2023 Telemedicine consultation with patient Danika Mata PA-C Work Phone: Neurology Start: 11-24-2023 End: 11-24-2023 Telephone encounter Denzel Whalen MD Work Phone: [facility] [place] Comment on above: Results Start: 11-20-2023 End: 11-20-2023 ambulatory DENZEL WHALEN Facility:[facility] Start: 11-20-2023 End: 11-20-2023 Patient encounter procedure Denzel Whalen MD Work Phone: [facility] Comment on above: Encounter for genera l adult medical examination without abnormal findings (Primary Dx); Encounter for screening for depression; Abnormal urine findings; Screening examination for STI Start: 11-20-2023 End: 11-20-2023 Patient encounter status Denzel Whalen MD Work Phone: [facility] Start: 11-17-2023 End: 11-17-2023 Patient encounter procedure Arian Andres MD, PhD Work Phone: [facility] Comment on above: Acute head injury, s ubsequent encounter [S09.90XD] (Primary Dx) Start: 11-17-2023 End: 11-17-2023 Telemedicine consultation with patient Arian Andres MD, PhD Work Phone: [facility] Start: 11-17-2023 End: 11-17-2023 ambulatory ARIAN ANDRES Facility:[facility] Start: 10-29-2023 End: 10-29-2023 ambulatory EZEKIEL GONZALEZ Facility:[facility] Start: 10-29-2023 End: 10-29-2023 Patient encounter procedure Ezekiel Gonzalez DO Work Phone: [facility] Comment on above: Occipital neuralgia of left side (Primary Dx) Start: 10-01-2023 End: 10-01-2023 ambulatory EZEKIEL GONZALEZ Facility:[facility] Start: 10-01-2023 End: 10-01-2023 Patient encounter procedure Ezekiel Gonzalez DO Work Phone: [facility] Comment on above: Occipital neuralgia of left side (Primary Dx) Start: 09-22-2023 End: 09-22-2023 Patient encounter procedure Denzel Whalen MD Work Phone: [facility] Comment on above: Occipital neuralgia of left side (Primary Dx) Start: 09-17-2023 Telephone encounter Danika padgett PA-C Work Phone: [address] [place] [address] Comment on above: Patient Update Start: 08-19-2023 End: 08-19-2023 Patient encounter procedure Danika Mata PA-C Work Phone: Neurology Comment on above: Intractable chronic migraine without aura and without status migrainosus (Primary Dx); Intractable acute post-traumatic headache Start: 08-15-2023 End: 08-15-2023 Patient encounter procedure Arian Andres MD, PhD Work Phone: [facility] Comment on above: Intractable acute po st-traumatic headache (Primary Dx) Start: 08-15-2023 End: 08-15-2023 ambulatory ARIAN ANDRES Facility:[facility] Start: 08-01-2023 Telephone encounter Arian carranza MD, PhD Work Phone: [facility] Comment on above: [employer] Start: 07-17-2023 End: 07-17-2023 Emergency department patient visit UNLISTED PROVIDER [facility] Comment on above: Nonintractable heada hung, unspecified chronicity pattern, unspecified headache type (Primary Dx) Start: 07-17-2023 End: 07-17-2023 ambulatory DENZEL [facility] Start: 06-09-2023 End: 06-09-2023 Patient encounter procedure Arian Andres MD, PhD Work Phone: [facility] Comment on above: 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); Tinnitus of left ear Start: 06-09-2023 End: 06-09-2023 ambulatory ARIAN ANDRES Facility:[facility] Start: 06-09-2023 End: 06-09-2023 Subsequent hospital visit by physician [facility] SC[facility] [place] TICKETING CLERK Comment on above: Intraparenchymal hem orrhage of brain (HCC) [I61.9] Start: 05-16-2023 [facility] Start: 04-29-2023 End: 04-29-2023 Subsequent hospital visit by physician Unlisted Provider [facility] Comment on above: Arrived Start: 04-17-2023 End: 04-17-2023 ambulatory ARIAN ANDRES Facility:[facility] Start: 04-15-2023 End: 04-15-2023 ambulatory CARMEN Amanda NOLASCO Facility:[facility] Start: 04-10-2023 Non-patient / Non-visit Dr. Jessica Whalne Work Phone: [facility] Work Phone: Start: 04-09-2023 Non-patient / Non-visit Dr. Jessica Whalen Work Phone: [facility] Work Phone: Start: 04-07-2023 Non-patient / Non-visit Dr. Jessica Whalen Work Phone: [facility] [facility] Work Phone: Start: 04-03-2023 Non-patient / Non-visit Dr. Jessica Whalen Work Phone: [facility] Work Phone: Start: 04-02-2023 Non-patient / Non-visit Dr. Jessica Whalen Work Phone: [facility] Work Phone: Start: 04-02-2023 ambulatory Cecilia Mcnamara [facility] Start: 04-02-2023 Evaluation and manag ement of inpatient Cecilia Mcnamara Facility:[facility] Start: 04-02-2023 End: 04-10-2023 Evaluation and management of inpatient Dr. Denzel Whalen Work Phone: [facility] Work Phone: Start: 03-23-2023 Admission to establishment Melva Squires se, RN [facility] Start: 03-23-2023 ambulatory Melva Torres RN Behavior al Health Intake Comment on above: Agitation (Code Viol et) Start: 03-22-2023 End: 04-02-2023 [facility] Start: 03-18-2023 Telephone encounter Adriana Bryant DO Work Phone: Orthopaedics Comment on above: Appointment Start: 11-18-2022 End: 11-18-2022 Patient encounter procedure Denzel Whalen MD Work Phone: [facility] [place] Comment on above: Encounter for genera l adult medical examination without abnormal findings (Primary Dx); Encounter for immunization; Encounter for sickle-cell screening; Screening for depression Start: 11-18-2022 End: 11-18-2022 Patient encounter status Denzel Whalen MD Work Phone: [facility] Work Phone: Start: 11-18-2022 ambulatory Denzel Whalen MD Work Phone: [facility] [place] Comment on above: Physical Start: 11-14-2022 End: 11-14-2022 ambulatory Adriana Bryant Facility:[facility] Start: 11-04-2022 End: 11-04-2022 Patient encounter procedure Simone Holley PA-C Work Phone: Orthopaedics Comment on above: S/P lateral meniscal repair (Primary Dx) Start: 10-22-2022 Telephone encounter Rachelledeja Bryant DO Work Phone: Orthopaedics Comment on above: please call Start: 10-22-2022 End: 10-22-2022 ambulatory DENZEL WHALEN Facility:[facility] Start: 10-04-2022 End: 10-04-2022 Admission to establishment Pac Brady [employer] 2 Work Phone: [facility] Start: 10-04-2022 End: 10-04-2022 ambulatory Pac Brady Virtual 2 Work Phone: Pre Anesthesia Comment on above: Pre-op evaluation (P rimary Dx) Start: 10-04-2022 End: 10-04-2022 Preprocedural examination done Pac Brady [employer] 2 Work Phone: Pre Anesthesia Start: 09-23-2022 Orders Only RachelleTosha Bryant DO Work Phone: Orthopaedics Comment on above: Tear of lateral meni scus of right knee, current, unspecified tear type, initial encounter (Primary Dx); Hoffa's knee joint disease (HCC) Start: 09-18-2022 End: 09-18-2022 Patient encounter procedure RachelleTosha Bryant DO Work Phone: Orthopaedics Comment on above: Tear of lateral meni scus of right knee, current, unspecified tear type, initial encounter (Primary Dx); Hoffa's knee joint disease (HCC) Start: 08-31-2022 End: 08-31-[address] Denzel Whalen Work Phone: [facility] Work Phone: Start: 08-31-2022 End: 08-31-[address] Denzel Whalen Work Phone: [facility] Start: 07-05-2022 End: 07-05-2022 Patient encounter procedure Adriana Bryant DO Work Phone: Orthopaedics Comment on above: Tear of lateral meni scus of right knee, current, unspecified tear type, initial encounter (Primary Dx) Start: 07-05-2022 ambulatory DENZEL WHALEN Facility: [facility] Start: 07-05-2022 End: 07-05-2022 Subsequent hospital visit by physician Radio General Sunna Jon Work Phone: Radiology Comment on above: Pain [R52] Start: 06-27-2022 End: 06-27-2022 Patient encounter procedure Tierra Gaffney APRN.CLEARANCE REPRESENTATIVE Work Phone: [facility] Comment on above: Sinusitis, unspecifi ed chronicity, unspecified location (Primary Dx); Nasal congestion; Tonsillar hypertrophy Start: 05-27-2022 End: 05-27-2022 ambulatory Denzel Whalen [facility] Start: 05-27-2022 End: 05-27-[address] Denzel Whalen Work Phone: [facility] Start: 04-30-2022 End: 04-30-2022 Patient encounter procedure Denzel Whalen MD Work Phone: [facility] [place] Comment on above: Sore throat (Primary Dx); Tonsillar hypertrophy Start: 01-10-2022 Telephone encounter Denzel adames MD Work Phone: [facility] [place] Comment on above: Results Start: 01-09-2022 End: 01-09-2022 Patient encounter procedure Denzel Whalen MD Work Phone: [facility] [place] Comment on above: Exudative pharyngiti s (Primary Dx) Start: 01-07-2022 End: 01-07-2022 Patient encounter procedure Giovani Baron APRN.CLEARANCE REPRESENTATIVE Work Phone: [facility] Comment on above: Pharyngitis, unspeci fied etiology (Primary Dx); Viral illness Procedures Date Procedure Procedure Detail Performing Clinician Start: 05-13-2024 Assay of lactate Lien Amin APRN [employer]OSS Work Phone: Start: 05-13-2024 Urine test visual color cmprsn richie Mcadams MD Work Phone: Start: 05-13-2024 Urnls dip stick/tabl et reagent auto microscopy Lien Amin APRN [employer] Work Phone: Start: 05-13-2024 Basic metabolic pane l calcium total Santino Mcadams MD Work Phone: Start: 05-13-2024 DARK GREEN TOP Santino rich MD Work Phone: Start: 05-13-2024 GOLD TOP Santino quiroga MD Work Phone: Start: 05-13-2024 Hepatic function panel Lien Amin APRN [employer] Work Phone: Start: 05-13-2024 LAVENDER TOP Santino quiroga MD Work Phone: Start: 05-13-2024 LIGHT BLUE TOP Santino rich MD Work Phone: Start: 05-13-2024 LIGHT GREEN TOP Santino carrasquillo MD Work Phone: Start: 05-13-2024 RAINBOW DRAW Santino quiroga MD Work Phone: Start: 05-13-2024 WHITE TOP Santino quiroga MD Work Phone: Start: 05-10-2024 Ct cervical spine w/ o contrast material Jessica Gould MD Work Phone: Start: 05-10-2024 Ct head/brain w/o co ntrast material Jessica Gould MD Work Phone: Start: 05-10-2024 Urine test visual color cmprsn meths Jessica Gould MD Work Phone: Start: 11-20-2023 Iadna chlamydia trachomatis amplified probe tq Denzel Whalen MD Work Phone: Start: 11-20-2023 Urnls dip stick/tabl et rgnt auto w/o microscopy Denzel Whalen MD Work Phone: Start: 11-20-2023 Adult depression scr eening assessment Danika Mata PA-C Work Phone: Start: 10-29-2023 Injection single/rater associate trigger point 1/2 muscles Ezekiel Gonzalez DO Work Phone: Start: 10-01-2023 ADDITIONAL INJECTION/ARTHROCENTESIS Ezekiel Gonzalez DO Work Phone: Start: 07-17-2023 Ct head/brain w/o co ntrast material Barrie Jovan CHILD CARE CENTRE MANAGER CLEARANCE REPRESENTATIVE Work Phone: Start: 07-17-2023 Urine test visual color cmprsn meths Barrie Aldana CHILD CARE CENTRE MANAGER CLEARANCE REPRESENTATIVE Work Phone: Start: 06-09-2023 Ct head/brain w/o co ntrast material Arian Andres MD, PhD Work Phone: Start: 04-15-2023 History of operative procedure on knee History of knee surgery Carolyn Benitezhay Start: 04-03-2023 CT of head without contrast Dr. Denzel Whalen Work Phone: Start: 03-22-2023 Antibody screen AKASPEN AGATHA Comment on above: Order Comment: Speci men Type: BLOOD SPECIMEN [facility]ing [facility] Address: [address] [place] [address] Performed By: #### 2 [id number], [id number], [id number] #### [facility] CLIA [id number] [address] [place] [address] [place] Start: 11-18-2022 Urnls dip stick/tabl et rgnt auto w/o microscopy Denzel Whalen MD Work Phone: Start: 11-18-2022 Menacwy-tt conj vacc serogroups acwy for im use Denzel Whalen MD Work Phone: Start: 09-18-2022 Arthrocentesis aspir &/inj major jt/bursa w/o us Adriana Bryant DO Work Phone: Start: 08-31-2022 MRI of joint of lowe r extremity Dr. Denzel Whalen Work Phone: Start: 07-05-2022 Radiologic exam knee complete 4/more views Adriana Bryant DO Work Phone: Start: 04-30-2022 STREP A MOLECULAR (POC) Denzel Whalen MD Work Phone: Start: 01-07-2022 STREP A MOLECULAR (POC) Giovani Baron APRN.CLEARANCE REPRESENTATIVE Work Phone: Start: 06-04-2021 Adult depression scr eening assessment Giovani Baron CHILD CARE CENTRE MANAGER.CLEARANCE REPRESENTATIVE Work Phone: History of operative procedure on knee S/P lateral meniscal repair Simone Holley PA-C Work Phone: History of operative procedure on knee History of medial meniscus repair of right knee Dr. Denzel Whalen Work Phone: Plan of Treatment Date Care Activity Detail Author Start: 03-23-2033 Administration of diphtheria + tetanus + acellular pertussis vaccine DTAP/TDAP/TD VACCINE (8 - Td or Tdap) [facility] Start: 03-23-2033 Urine microalbumin profile DTaP,Tdap,Td Vaccine (8 - Td or Tdap) [facility] Start: 11-21-2026 Urine microalbumin profile [facility] Start: 12-06-2024 Influenza vaccination Influenz a Vaccine (Season Ended) [facility] Start: 11-19-2024 Anxiety Screening Anxiety Screening [facility] Start: 11-19-2024 Depression Screening Depression Scre ening [facility] Start: 11-19-2024 GC (Gonorrhea) Scree misty (18-24) GC (Gonorrhea) Screening (18-24) [facility] Start: 11-19-2024 Screening for Chlamy palomo trachomatis [facility] Start: 10-01-2024 End: 10-01-2024 Patient encounter procedure 10/01/2024 10:45 AM EDT Office Visit Pain Management [id number] [id number] [place] [address] [place] [address] 4 week follow up Pain Management Comment on above: 4 week follow up Start: 09-01-2024 End: 09-01-2024 Patient encounter procedure 09/01/2024 1:00 PM EDT Office Visit Pain Management [address] [place] [address] [place] [address] [place], [place] [phone] Nerve Block Pain Management Comment on above: Nerve Block Start: 06-18-2024 End: 06-18-2024 Patient encounter procedure 06/18/2024 2:30 PM EDT Office Visit Pain Management [address] [place] [address] [place] [address] [place] [address] pain re-eval (no khanh) needed Pain Management Comment on above: pain re-eval (no khanh ) needed Start: 05-27-2024 End: 05-27-2024 Patient encounter procedure [facility] Start: 05-20-2024 End: 05-20-2024 Patient encounter procedure 05/20/2024 2:00 PM EST Appointment [facility] [address] [place] [address] Jake Ribeiro APRN CLEARANCE REPRESENTATIVE [facility] [place] [address] Charly Camacho PT, DPT [facility] Start: 05-13-2024 End: 05-13-2024 Patient encounter procedure 05/13/2024 12:00 PM EST Appointment [facility] [address] [place] [address] Jake Ribeiro APRN CLEARANCE REPRESENTATIVE [address] [place] [id number] Charly Camacho PT, DPT Discharge Disposition: Home or Self Care [facility] Start: 05-06-2024 End: 05-06-2024 Patient encounter procedure 05/06/2024 9:00 AM EST Office Visit Orthopaedics [address] [place], [place] [phone] Adriana Bryant DO [address] [place] [address] Right knee pain, meniscus, past surgeries Orthopaedics Comment on above: Right knee pain, men iscus, past surgeries Start: 05-04-2024 End: 05-04-2024 Patient encounter procedure [facility] Comment on above: Occipital neuralgia of left side [M54.81] TB---Occipital neura lgia of left side [M54.81] Start: 04-09-2024 End: 04-09-2024 Patient encounter procedure 04/09/2024 11:00 AM EST Office Visit Neurology [facility] [address] [place] [address] Ariadna Bailey APRN.CLEARANCE REPRESENTATIVE [address] [place] [address] Neurology [facility] Start: 01-08-2024 End: 01-08-2024 Patient encounter procedure 01/08/2024 5:20 PM EDT Office Visit Neurology [facility] [address] [place] [address] [place] [address] [place], [place] [phone] Head pain, botox Neurology [facility] Comment on above: Head pain, botox Start: 12-18-2023 End: 12-18-2023 Follow-up encounter 12/18/2023 4:30 PM EDT [facility] [address] [place] [address] [place] [address] Danika Mata PA-C [address] [place] [phone] 3 month follow up Neurology Comment on above: 3 month follow up Start: 12-07-2023 Covid-19 Vaccine ( season) Covid-19 Vaccine () [facility] Start: 12-07-2023 Covid-19 Vaccine ( season) Covid-19 Vaccine ( season) [facility] Start: 12-07-2023 Influenza vaccination [facility] Start: 12-07-2023 Influenza vaccinatio n given INFLUENZA VACCINE (#1) [facility] Start: 11-20-2023 End: 11-20-2023 Patient encounter procedure 11/20/2023 4:00 PM EDT Office Visit [facility] [place] [address] [place], [place] [phone] Denzel Whalen MD [address] [place] [address] Annual [facility] [place] Comment on above: Annual [facility] Start: 11-17-2023 End: 11-17-2023 Patient encounter procedure 11/17/2023 11:45 AM EDT Office Visit [facility] [address] [facility] [place] [place] [id number] Arian Andres MD, PhD [address] [place] [address] 5 month follow up [facility] Comment on above: 5 month follow up Start: 10-01-2023 End: 10-01-2023 Patient encounter procedure 10/01/2023 3:00 PM EDT Office Visit Family [facility] [address] [place], [place] [phone] Ezekiel Gonzalez V, DO [address] [place] [address] occipital neuralgia Family [facility] Comment on above: occipital neuralgia Start: 08-19-2023 End: 08-19-2023 Patient encounter procedure 08/19/2023 7:00 AM EDT Office Visit Neurology [address] [place], [place] [phone] Danika Mata PA-C [address] [place], [place] [phone] [facility] (Headache) Neurology Comment on above: SEVILLA (Headache) Start: 08-15-2023 End: 08-15-2023 Patient encounter procedure 08/15/2023 10:30 AM EDT Office Visit [facility] [address] [place] [address] Arian Andres MD, PhD [address] [place] [address] headaches went to the ED in [facility] Comment on above: headaches went to e ED in [facility] Start: 06-16-2023 Pneumococcal vaccination Pneum ococcal Vaccine (1 of 2 - PCV) [facility] Start: 04-10-[address] [facility] Start: 04-07-2023 Behavioral Health Screening Behavioral Health Screening [facility] Start: 04-07-2023 Depression Assessment Depression Ass essment [facility] Start: 04-03-2023 Following clinical pathway protocol [facility] Start: 04-02-2023 Recommendation to continue with treatment [facility] Start: 04-02-2023 Referral to service [facility] Start: 04-02-2023 Admission procedure [facility] Start: 04-02-2023 Measuring intake and output [facility] Start: 04-02-2023 Patient referral to dietitian [facility] Start: 04-02-2023 Referral to occupati onal therapist [facility] Start: 04-02-2023 Vital signs measurements [facility] Start: 04-02-2023 End: 04-02-2023 [facility] Start: 04-02-2023 Application of device [facility] Start: 04-02-2023 Speech therapy assessment [facility] Start: 12-06-2022 Covid-19 Vaccine ( season) Covid-19 Vaccine ( season) [facility] Start: 12-06-2022 Influenza vaccination [facility] Start: 12-06-2022 Influenza vaccinatio n given INFLUENZA VACCINE (#1) [facility] Start: 2022 ANNUAL WELLNESS VISIT ANNUAL WELLNES S VISIT [facility] Start: 2022 Anxiety Screening Anxiety Screening [facility] Start: 2022 CHLAMYDIA SCREENING (18) CHLAMYDIA SCREENING () [facility] Start: 2022 Depression Screening Depression Scre ening [facility] Start: 2022 GC (GONORRHEA) SCREE MISTY (1824) GC (GONORRHEA) SCREENING (1824) [facility] Start: 2022 HEPATITIS C SCREENING HEPATITIS C [facility] Start: 2022 Hepatitis C screening Hepatitis C [facility] Start: 2022 HIV SCREENING HIV SCREENING [facility] Start: 2022 HIV screening HIV Screening [facility] Start: 2022 Screening for Chlamy palomo trachomatis Chlamydia Screening () [facility] Start: 06-04-2022 Adult depression screening assessment DEPRESSION SCREENING [facility] Start: 04-30-2022 End: 06-30-2022 Lelo Castaneda virus capsid IgM Ab [Units/volume] in Serum [facility] Work Phone: Comment on above: Expected: 04/30/2022 , Expires: 06/30/2022 Start: 04-07-2022 DEPRESSION ASSESSMENT DEPRESSION ASS ESSMENT [facility] Start: 01-07-2022 End: 01-21-2022 COVID, FLU A/B + RSV, ROUTINE [facility] Work Phone: Comment on above: Expected: 01/07/2022 , Expires: 01/21/2022 Start: 12-06-2021 Influenza vaccination INFLUENZA (#1) [facility] Start: 2020 Meningococcal B Vacc ine (1 of 2 - Standard) Meningococcal B Vaccine (1 of 2 - Standard) [facility] Start: 2020 Meningococcal B Vacc ine: Consider Based On Risk (1 of 2 - Patient Seeks Protection) Meningococcal B Vaccine: Consider Based On Risk (1 of 2 - Patient Seeks Protection) [facility] Start: 2020 MENINGOCOCCAL B: Consider based on risk (1 of 2 - Patient Seeks Protection) MENINGOCOCCAL B: Consider based on risk (1 of 2 - Patient Seeks Protection) [facility] Start: 2020 MENINGOCOCCAL CONJUG ATE (2 - 2-dose series) MENINGOCOCCAL CONJUGATE (2 - 2-dose series) [facility] Start: 2020 Screening for Chlamy palomo trachomatis CHLAMYDIA SCREENING [facility] Start: 06-16-2019 CHLAMYDIA SCREENING (<18) CHLAMYDIA SCREENING (<18) [facility] Start: 06-16-2019 GC (GONORRHEA) SCREE MISTY (<18) GC (GONORRHEA) SCREENING (<18) [facility] Start: 06-16-2019 HPV Vaccine (1 - 3-d ose series) HPV Vaccine (1 - 3-dose series) [facility] Start: 06-16-2019 Human papilloma viru s vaccination given HPV VACCINES (GARDASIL) (1 - 3-dose series) [facility] Start: 2018 PEDS TO ADULT TRANSI TION ANNUAL ASSESSMENT PEDS TO ADULT TRANSITION ANNUAL ASSESSMENT [facility] Start: 2016 Depression screening using PHQ-9 (Patient Health Questionnaire 9) score DEPRESSION SCREENING [facility] Start: 06-16-2015 HPV VACCINE (1 - 2-d ose series) HPV VACCINE (1 - 2-dose series) [facility] Start: 06-16-2015 Human papilloma viru s vaccination given HPV VACCINES (GARDASIL) (1 - 2-dose series) [facility] Start: 2014 MENINGOCOCCAL B: Consider based on risk (1 of 2 - Risk Bexsero 2-dose series) MENINGOCOCCAL B: Consider based on risk (1 of 2 - Risk Bexsero 2-dose series) [facility] Start: 2013 HPV VACCINE (1 - 2-d ose series) HPV VACCINE (1 - 2-dose series) [facility] Start: 2005 Hepatitis A immunization HEPAT ITIS A VACCINE (1 of 2 - 2-dose series) [facility] Start: 2004 COVID-19 VACCINE (#1) COVID-19 VACCI NE (#1) [facility] Injection aa&/strd greater occipital nerve GREATER OCCIPITAL NERVE BLOCK Procedures Routine Occipital neuralgia of left side Ordered: 06/18/2024 [facility] Work Phone: Comment on above: Ordered: 06/18/2024 Patient referral [facility] Work Phone: ROUTINE FLU A/B + RSV ROUTINE [place] U A/B + RSV Lab Routine Pharyngitis, unspecified etiology Viral illness 01/07/2022 10:[address] [facility] Work Phone: SARS-CoV-2 (COVID-19 ) RNA [Presence] in Respiratory specimen by JUAN with probe detection 2019 CORONAVIRUS Microbiology Routine Pharyngitis, unspecified etiology Viral illness 01/07/2022 10:[address] [facility] Work Phone: [facility] [place] [facility] Immunizations Immunization Date Immunization Notes Care Provider Elina massey 03-23-2023 tetanus toxoid, redu kevin diphtheria toxoid, and acellular pertussis vaccine, adsorbed Melva Torres RN [facility] 11-18-2022 meningococcal (MenACWY-TT) vaccine, quadrivalent (MENQUADFI) Denzel Whalen MD Work Phone: [facility] 07-08-2017 tuberculin skin test ; purified protein derivative solution, intradermal Denzel Whalen MD Work Phone: [facility] 11-21-2016 meningococcal polysaccharide (groups A, C, Y and W-135) diphtheria toxoid conjugate vaccine (MCV4P) Giovani Baron APRN.CLEARANCE REPRESENTATIVE Work Phone: [facility] 11-21-2016 tetanus toxoid, redu kevin diphtheria toxoid, and acellular pertussis vaccine, adsorbed Giovani Baron CHILD CARE CENTRE MANAGER.CLEARANCE REPRESENTATIVE Work Phone: [facility] 01-21-2011 influenza virus vacc ine, unspecified formulation Giovani Baron APRN.CLEARANCE REPRESENTATIVE Work Phone: [facility] Work Phone: 06-20-2009 diphtheria, tetanus toxoids and acellular pertussis vaccine Giovani Baron CHILD CARE CENTRE MANAGER.CLEARANCE REPRESENTATIVE Work Phone: [facility] Work Phone: 06-20-2009 measles, mumps and rubella virus vaccine Giovaninickolas [facility] CHILD CARE CENTRE MANAGER.CLEARANCE REPRESENTATIVE Work Phone: [facility] Work Phone: 06-20-2009 poliovirus vaccine, inactivated [facility]ick[facility] CHILD CARE CENTRE MANAGER.CLEARANCE REPRESENTATIVE Work Phone: [facility] Work Phone: 06-20-2009 varicella virus vaccine Cristofer nickolas [facility] CHILD CARE CENTRE MANAGER.CLEARANCE REPRESENTATIVE Work Phone: [facility] Work Phone: 06-27-2006 diphtheria, tetanus toxoids and acellular pertussis vaccine [facility] CHILD CARE CENTRE MANAGER.CLEARANCE REPRESENTATIVE Work Phone: [facility] 06-27-2006 haemophilus influenz ae type b vaccine, HbOC conjugate [facility] CHILD CARE CENTRE MANAGER.CLEARANCE REPRESENTATIVE Work Phone: [facility] 06-19-2005 measles, mumps and rubella virus vaccine [facility] CHILD CARE CENTRE MANAGER.CLEARANCE REPRESENTATIVE Work Phone: [facility] 06-19-2005 pneumococcal conjuga te vaccine, 7 valent [facility] CHILD CARE CENTRE MANAGER.CLEARANCE REPRESENTATIVE Work Phone: [facility] 06-19-2005 varicella virus vaccine Cristofer nickolas [facility] CHILD CARE CENTRE MANAGER.CLEARANCE REPRESENTATIVE Work Phone: [facility] 03-18-2005 influenza virus vacc ine, unspecified formulation [facility] CHILD CARE CENTRE MANAGER.CLEARANCE REPRESENTATIVE Work Phone: [facility] Work Phone: 2004 DTaP-hepatitis B and poliovirus vaccine [facility] CHILD CARE CENTRE MANAGER.CLEARANCE REPRESENTATIVE Work Phone: [facility] 2004 haemophilus influenz ae type b vaccine, HbOC conjugate [facility] CHILD CARE CENTRE MANAGER.CLEARANCE REPRESENTATIVE Work Phone: [facility] 2004 pneumococcal conjuga te vaccine, 7 valent [facility] CHILD CARE CENTRE MANAGER.CLEARANCE REPRESENTATIVE Work Phone: [facility] 2004 diphtheria, tetanus toxoids and acellular pertussis vaccine [facility] CHILD CARE CENTRE MANAGER.CLEARANCE REPRESENTATIVE Work Phone: [facility] Work Phone: 2004 haemophilus influenz ae type b vaccine, HbOC conjugate Giovani Pendlebury CHILD CARE CENTRE MANAGER.[facility] Work Phone: [facility] Work Phone: 2004 hepatitis B vaccine, pediatric or pediatric/adolescent dosage Giovani Pendlebury CHILD CARE CENTRE MANAGER.[facility] Work Phone: [facility] Work Phone: 2004 pneumococcal conjuga te vaccine, 7 valent Giovani Pendlebury CHILD CARE CENTRE MANAGER.[facility] Work Phone: [facility] Work Phone: 2004 poliovirus vaccine, inactivated Giovani Pendlebury CHILD CARE CENTRE MANAGER.[facility] Work Phone: [facility] Work Phone: 2004 diphtheria, tetanus toxoids and acellular pertussis vaccine Giovani Pendlebury CHILD CARE CENTRE MANAGER.[facility] Work Phone: [facility] Work Phone: 2004 haemophilus influenz ae type b vaccine, HbOC conjugate Giovani Pendlebury CHILD CARE CENTRE MANAGER.[facility] Work Phone: [facility] Work Phone: 2004 hepatitis B vaccine, pediatric or pediatric/adolescent dosage Giovani Pendlebury CHILD CARE CENTRE MANAGER.[facility] Work Phone: [facility] Work Phone: 2004 pneumococcal conjuga te vaccine, 7 valent Giovani Pendlebury CHILD CARE CENTRE MANAGER.[facility] Work Phone: [facility] Work Phone: 2004 poliovirus vaccine, inactivated Giovani Pendlebury CHILD CARE CENTRE MANAGER.[facility] Work Phone: [facility] Work Phone: Payers Date Payer Category Payer [facility] BLUE CARD PPO OOS [id number] 2023 Commercial [employer]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 2021 Unknown [id number] 2004 Unknown [id number] .297 2004 Unknown [id number] 2.16.840.1.636619.3.579.2 .297 2004 Unknown [id number] 2.16.840.1.251061.3.579.2 .297 2004 Unknown [id number] 2.16.840.1.279380.3.579.2 .297 2004 Unknown [id number] 2.16.840.1.543600.3.579.2 .297 2004 Unknown [id number] 2.16.840.1.820988.3.579.2 .297 2004 Unknown [id number] 2.16.840.1.549474.3.579.2 .297 2004 Unknown [id number] 2.16840.1.178461.3.579.2 .297 2004 Unknown [id number] 2.16840.1.850139.3.579.2 .297 2004 Unknown [id number] 2.16.840.1.596945.3.579.2 .297 Unknown COMMERCIAL OTHER [id number] [facility] [id number] Unknown [facility] [id number] Unknown [id number] [id number] .462 Unknown [id number] 2.16840.1.314607.3.579.2 .462 Unknown [id number] 2.16840.1.687994.3.579.2 .462 Unknown [id number] 2.16840.1.234982.3.579.2 .462 Unknown [id number] 2.16840.1.249236.3.579.2 .462 Unknown [id number] [id number] .462 Social History Date Type Detail Facility Start: 01-07-2022 End: 05-10-2024 Tobacco smoking status NHIS Never smoked tobacco [facility] History of tobacco use Passive smoker [facility] Start: 01-07-2022 End: 09-01-2024 Tobacco use and exposure Smokeless tobacco non-user [facility] Start: 01-07-2022 End: 05-10-2024 Alcohol intake Not Asked [facility] Start: 01-07-2022 Tobacco Comment mom vapes [facility] Start: 2004 Sex Assigned At Not on file [facility] Start: 12-28-2021 End: 01-09-2022 Exposure to SARS-CoV-2 (event) Not sure [facility] Work Phone: Start: 05-27-2022 End: 04-02-2023 Tobacco smoking status NHIS Unknown if ever smoked [facility] Start: 05-05-2020 Non-smoker [facility] Start: 2004 Sex Assigned At Female [facility] Start: 10-04-2022 End: 08-19-2023 Alcohol intake Ex-drinker (finding) [facility] Start: 09-18-2022 End: 10-04-2022 History of Social function [facility] Start: 09-18-2022 End: 10-04-2022 Tobacco use panel [facility] National Score (1-10 0), lower number is lower risk 69 [facility] Start: 09-23-2022 Gender identity Identifies as female gender (finding) [facility] Start: 09-23-2022 Sexual orientation Heterosexual (fin andree) [facility] Do you belong to any clubs or organizations such as scientologist groups, unions, fraternal or athletic groups, or school groups? Yes [facility] Are you now , , , , never or living with a partner? Never [facility] How often to you hav e a drink containing alcohol? Never [facility] Do you feel stress - tense, restless, nervous, or anxious, or unable to sleep at night because your mind is troubled all the time - these days [OSQ] To some extent [facility] (I/We) worried wheth er (my/our) food would run out before (I/we) got money to buy more. Never true [facility] In the past 12 month s, was there a time when you were not able to pay the mortgage or rent on time? No [facility] Start: 10-01-2023 End: 09-01-2024 Alcohol intake Current drinker of alcohol (finding) [facility] Start: 10-01-2023 End: 05-10-2024 Alcohol Comment socially [facility] Start: 09-01-2024 Tobacco smoking stat us AKIS Smokes tobacco daily [facility] History of tobacco use [facility]: Highlighted row [facility] Medical Equipment Procedure Code Equipment Code Equipment Origin al Text Equipment Identifier Dates Arthroscopy, knee, with meniscectomy NEEDLE REV CRV DEL SYS FDA Start: 02-24-2019 Arthroscopy, knee, with meniscectomy NEEDLE REV CRV DEL SYS FDA Start: 02-24-2019 Arthroscopy, knee, with meniscectomy NEEDLE REV CRV DEL SYS FDA Start: 02-24-2019 Arthroscopy, knee, with meniscectomy NEEDLE REV CRV DEL SYS FDA Start: 02-24-2019 Arthroscopy, knee, with meniscectomy NEEDLE REV CRV DEL SYS FDA Start: 02-24-2019 Arthroscopy, knee, with meniscectomy NEEDLE REV CRV DEL SYS FDA Start: 02-24-2019 Arthroscopy, knee, with meniscal root repair NEEDLE REV CRV DEL SYS FDA Start: 05-12-2020 Arthroscopy, knee, with meniscal root repair NEEDLE REV CRV DEL SYS FDA Start: 05-12-2020 Arthroscopy, knee, with meniscal root repair NEEDLE REV CRV DEL SYS FDA Start: 05-12-2020 Arthroscopy, knee, with meniscal root repair NEEDLE REV CRV DEL SYS FDA Start: 05-12-2020 Arthroscopy, knee, with meniscal root repair NEEDLE REV CRV DEL SYS FDA Start: 05-12-2020 Arthroscopy, knee, with meniscal root repair NEEDLE REV CRV DEL SYS FDA Start: 05-12-2020 Arthroscopy, knee, with meniscal root repair NEEDLE REV CRV DEL SYS FDA Start: 05-12-2020 Arthroscopy, knee, with meniscal root repair NEEDLE REV CRV DEL SYS FDA Start: 05-12-2020 Device Fast-Fix 360d Reverse Curve Fixation Meniscal Repair System - [id number] Start: 10-22-2022 Device Fast-Fix 360d Reverse Curve Fixation Meniscal Repair System - [id number] Start: 10-22-2022 Functional Status Date Assessment Result Facility 04-10-2023 Functional status Activity Abili ty Independent [facility] Work Phone: 04-06-2023 Functional status Ambulates [facility] Work Phone: 04-02-2023 Are you deaf, or do you have serious difficulty hearing No 04/02/2023 8:57 AM Manoj Steve, RN No [facility] 04-02-2023 Are you blind, or do you have serious difficulty seeing, even when wearing glasses No 04/02/2023 8:57 AM Manoj Steve, RN No [facility] 04-02-2023 Do you have serious difficulty walking or climbing stairs No 04/02/2023 8:57 AM Manoj Steve, RN No [facility] 04-02-2023 Do you have difficul ty dressing or bathing No 04/02/2023 8:57 AM Manoj Steve, RN No [facility] 04-02-2023 Because of a physica l, mental, or emotional condition, do you have difficulty doing errands alone such as visiting a physician's office or shopping No 04/02/2023 8:57 AM Manoj Steve, RN No [facility] Mental Status Date Assessment Result Facility 04-10-2023 Cognitive function Voice/Name [facility] Work Phone: 04-02-2023 Because of a physica l, mental, or emotional condition, do you have serious difficulty concentrating, remembering, or making decisions No 04/02/2023 8:57 AM Manoj Steve, RN No [facility] Clinical Notes 01-07-2022 to 09-29-2024 Telephone Encounter - Ariadna Bailey APRN.CNP - 09/29/2024 9:59 AM EDTTelephone Encounter - Ariadna Bailey APRN.CNP - 09/29/2024 9:59 AM EDTPatient Wendie Quick MD - 09/01/2024 12:54 PM EDT Note Date & Type Note Facility 09-29-2024 Telephone encounter Note The following approved medication requests have been transmitted electronically. Requested Prescriptions Signed Prescriptions Disp Refills topiramate (TOPAMAX) 100 mg tablet 90 tablet 3 Sig: Take 1 tablet by mouth daily at bedtime. Authorizing Provider: ARIADNA BAILEY APRN.CNP [facility] 09-29-2024 Miscellaneous Notes The following approved medication requests have been transmitted electronically. Requested Prescriptions Signed Prescriptions Disp Refills topiramate (TOPAMAX) 100 mg tablet 90 tablet 3 Sig: Take 1 tablet by mouth daily at bedtime. Authorizing Provider: ARIADNA BAILEY APRN.CNP Images from the original note were not included. Prescription pended to requested pharmacy and forwarded to provider for review. NATASHA: 04/19/2024 NOV: not scheduled Last prescribed: 1 month ago (08/09/2024) by Ariadna Bailey APRN.CNP Patient comment: 90! Anticonvulsant Refill Checklist [id number]/24/2024 04:25 PM Protocol Details Lytes within the last 12 months Serum Creatinine within the last 12 month CBC within the last 12 months LFT within the last 12 months Visit with provider within the last 12 months To be filled at: None [Patient requested: [id number] [id number]] MYC message sent to patient for clarification on pharmacy location documented in this encounter [facility] 09-29-2024 Telephone encounter Note Images from the original note were not included. Prescription pended to requested pharmacy and forwarded to provider for review. NATASHA: 04/19/2024 NOV: not scheduled Last prescribed: 1 month ago (08/09/2024) by Ariadna Bailey APRN.CLEARANCE REPRESENTATIVE Patient comment: 90! Anticonvulsant Refill Checklist Wzplig9509/24/2024 04:25 PM Protocol Details Lytes within the last 12 months Serum Creatinine within the last 12 month CBC within the last 12 months LFT within the last 12 months Visit with provider within the last 12 months To be filled at: None [Patient requested: [id number] [address]] [facility] 09-27-2024 Telephone encounter Note MYC message sent to patient for clarification on pharmacy location [facility] 09-21-2024 Telephone encounter Note Patient picked up the form today. [facility] 09-21-2024 Miscellaneous Notes Patient picked up the form today. Left message for patient to call the office. Employee Medical Statement was completed and then signed by Dr Whalen. Type of form: Employee medical statement Form received via walk in When form is completed, Call patient Form has been forwarded to Physician Desk: Dr. Koby Holloway LPN documented in this encounter [facility] 09-18-2024 Telephone encounter Note Left message for patient to call the office. Employee Medical Statement was completed and then signed by Dr Whalen. [facility] 09-16-2024 Telephone encounter Note Type of form: Employee medical statement Form received via walk in When form is completed, Call patient Form has been forwarded to Physician Desk: Dr. Koby Holloway LPN [facility] 09-01-2024 Instructions Rajeev Johnson MD - 09/01/2024 1:32 PM EDT Hi Coleen Demarco Frankie, You were at the [facility] today with Dr. Berry for a L occipital nerve block. Please follow up with us in clinic in about 4 weeks. Please call the clinic with any questions or issues. Thank you for allowing us to participate in your care. Rajeev Johnson MD Track Manager documented in this encounter [facility] 09-01-2024 Note HNO ID: [id number] Author: WENDIE BERRY MD Service: ? Author Type: Physician Type: Progress Notes Filed: 09/01/2024 15:07 Note Text: [facility] Pre-Procedure Note Patient Name: Coleen Nieves SUBJECTIVE: Coleen Nieves is a 19 year old female who presents to [facility] for L greater occipital nerve block. This is her second (2) procedure. The patient obtained > 75 % relief following the first procedure for 1 hours . The pain is located in the L occipital skull and radiates down to the L lateral scalp and above the ear. The pain is burning, stabbing, and throbbing in nature and is described as waxes and wanes. Current pain intensity is 2. Patient denies any contraindications to the procedure including , coagulopathy, infection, recent cerebral/myocardial infarct, and hemodynamic instability. Pain medications reviewed: Yes OBJECTIVE: BP 103/69 (BP Site: Right Arm, BP Position: Sitting) Pulse 69 Temp 36.6 ?C (97.9 ?F) Resp 20 Ht 172.7 cm (5' 8) Wt 59 kg (130 lb) LMP 08/18/2024 (Approximate) SpO2 98% BMI 19.77 kg/m? Significant changes in the patient's condition since the History and Physical: No INFORMED CONSENT: The procedure, risks, benefits and options were discussed with patient. There are no contraindications to the procedure. The patient expressed understanding and agreed to proceed. The personnel performing the procedure was discussed. I verify that I personally obtained Coleen Nieves's consent prior to the start of the procedure and the signed consent can be found on the patient's chart. UNIVERSAL PROTOCOL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 https://[facility].org/resource/?voc-uxdwqb-zrfxclu documented in this encounterMarymount Hospital08-14-2023 Miscellaneous Notes* Telephone Encounter - Carola Holloway LPN - 11/18/2022 4:31 PM EDT Form was printed out and pt is in the office at this time. documented in this encounterMarymount Hospital08-14-2023 History of Present illness Narrative* Denzel Whalen MD - 11/18/2022 3:52 PM EDT WELL VISIT PEDIATRIC 18+ YRS OLD Coleen is a 17 year old who presents today for well exam. SUBJECTIVE CONCERNS: Needs sickle cell test HISTORY ACTIVE PROBLEM LIST Flat Foot - 05/28/2019 Migraine - 11/21/2016 PAST MEDICAL HISTORY Diagnosis Date Concussion 2013 a table fell onher (caused by the dog knocking it over) CT Negative Fracture of clavicle at PAST SURGICAL HISTORY Procedure Laterality Date KNEE ARTHROSCOP MENISCUS REPAIR MED/LAT Right 02/24/2019 PAST SURGICAL HISTORY OF 2020 right knee meniscus ALLERGIES No Known Allergies Medications: ibuprofen (MOTRIN IB) 200 mg tablet Take 200 mg by mouth every 6 hours as needed. traMADol (ULTRAM) 50 mg tablet Take 1 tablet by mouth every 4 hours as needed for pain. MULTIVITAMIN ORAL Take by mouth. FINACEA 15 % foam as needed. FAMILY HISTORY Problem Relation Age of Onset Hypertension Maternal Grandmother other (migraines) Maternal Grandmother Anesthesia Problems No Family History Blood Clots No Family History Clotting Disorder No Family History Social History Social History Narrative Not on file Smoking Exposure: Do you spend a significant amount of time with anyone who smokes? No School: Entering College. Any concerns regarding peer interactions? No Physical Activity: more than 1 hour of physical activity per day Recreational Screen Time totaling less than 2 hours of screen time per day. Fainting, dizziness, significant shortness of breath or chest pain with sports or exercise: No History of concussion in the last year: No Safety: Reviewed seat belts and bike helmets Diet: -Eats 2 meals a day, 3 snacks -Typically drinks water -Eats fruits and vegetables Elimination: no concerns, normal size and consistency Dental: dental care current Sleep: -no sleep concerns Vision: No vision concerns Hearing: No hearing concerns Growth: No growth concerns Gynecological history: LMP: 11/04/22 Cycles are regular and last 5-6 days. Dysmenorrhea: none Heavy periods: no Substance use: none Sexual History: Attraction: male Sexually Active: Not currently, has in the past, 1 partner. Condoms each time Screening tools reviewed and discussed with patient/[id number]-[id number]-3. Please see Patient Entered Data. OBJECTIVE Physical Exam: BP 106/72 Pulse 60 Temp 36.9 C (98.5 F) (Temporal) Resp 16 Ht 173 cm (5' 8.11) Wt 80.1 kg (176 lb 9.6 oz) LMP 11/04/2022 (Approximate) BMI 26.77 kg/m Blood pressure %gurmeet are not available for patients who are 18 years or older. Blood pressure %gurmeet are not available for patients who are 18 years or older. 88 %ile (Z= 1.18) based on CDC (Girls, 2-20 Years) BMI-for-age based on BMI available as of 11/18/2022. Last BMI: Wt: 79.4 kg (175 lb) (94 %, Z= 1.58)* BMI: 25.11 kg/(m^2) Last 4 Encounter Wt Readings: Date: Wt: 10/04/2022 79.4 kg (175 lb) (94 %, Z= 1.58)* 06/27/2022 81.4 kg (179 lb 8 oz) (95 %, Z= 1.67)* 04/30/2022 82.6 kg (182 lb) (96 %, Z= 1.72)* 01/09/2022 84 kg (185 lb 4 oz) (96 %, Z= 1.79)* Last 4 Encounter Ht Readings: Date: Ht: 10/04/2022 177.8 cm (5' 10) (99 %, Z= 2.27)* 06/04/2021 172 cm (5' 7.72) (92 %, Z= 1.41)* 05/28/2019 172.1 cm (5' 7.75) (94 %, Z= 1.58)* 02/05/2018 167.1 cm (5' 5.8) (87 %, Z= 1.14)* General: alert and active in no apparent distress Head: Normocephalic, atraumatic Eyes: Steady central gaze without nystagmus. Conjunctiva are clear without injection or discharge. No scleral icterus. Ears: External ears normal. Canals clear. Tympanic membranes are intact bilaterally without evidence of fluid in the middle ear space Nose/Sinuses: Nares normal. Septum midline. Mucosa normal. No drainage or sinus tenderness. Oropharynx: Tonsils are 1+. Uvula is midline and the oropharynx is symmetrical Neck: No masses and the suprasternal notch, no supraclavicular adenopathy, supple, no adenopathy Thyroid: no masses or nodules present Heart: Regular Rate and Rhythm without murmurs or clicks, femoral and radial pulses are normal.PMI normal Lungs: clear to auscultation. No wheezes or rales.Chest AP diameter normal. Abdomen: Abdomen is soft, nontender, without organomegaly or masses. Musculoskeletal: Extremities with FROM and no problems identified. t Bilateral shoulder, elbow and wrist exams are within normal limits. Left hip, knee and ankle examinations are within normal limits. The left leg is immobilized in a large brace. Deferred examination as she is being followed by orthopedic surgery status post her right knee arthroscopy, lateral meniscus repair, extensive synovectomy on 10/22/[address] Bryant. Neurological: Muscle tone normal, Awake, alert and oriented x 3, Cranial nerves II-XII grossly intact, Normal age appropriate gait, muscle tone normal, muscle strength 5/5 in the upper and lower extremities bilaterally and symmetrically, rapid alternating movements smooth in the hands without evidence of dysdiadochokinesia Skin: Normal skin exam without concerning lesions ASSESSMENT: 17 year old Well exam PLAN: 1) Plan per orders. Office Visit on 11/18/22 MENINGOCOCCAL (MENACWY-TT) VACCINE, QUADRIVALENT (MENQUADFI) SICKLE PREP SCRN: Required by the school for her sports participation UA DIP, URINE (POC): Required by the school for her sports participation 2) Hearing and Vision if done at the visit was discussed and reviewed with the patient and family. 3) Questionnaires, if administered at the office today, were reviewed with the patient and family. 4) Growth curves including BMI were reviewed with the patient. Education regarding BMI, its meaningutility and limitations were discussed in the office today. If the BMI was elevated, we discussed interventions. 5) Counseling: See patient instruction section 6) Follow up every 1 year for well exam and PRN. ASSESSMENT & PLAN: Encounter Diagnosis ICD-10-CM 1. Encounter for routine child health examination w/o abnormal findings Z00.129 2. Encounter for immunization Z23 Body mass index is 26.77 kg/m . 88 %ile (Z= 1.18) based on CDC (Girls, 2-20 Years) BMI-for-age based on BMI available as of 11/18/2022. Coleen is elevated range (BMI 85th% - 95th%): -Discussed how healthy eating, minimizing electronics and getting physical activity impact physical and emotional health -Avoid eating out and encouraged family meals at home Depression Screening 11/14/2022 PHQ-2 Score 0 PHQ-9 Score 0 Depression screening tool completed and reviewed. Based on score and interview, patient is not at risk for depression. Screening tool discussed with patient, and I recommended no further interventionat this time. - Discussed diet and safety. - Dental care discussed. - Bright Futures handout given (See Patient Instructions). - Patient was counseled [id number] by myself (the billing provider) for the following immunizations and vaccine components, including side effects: MenQuadFi. Patient consents for immunization and understands risks and benefits. A VIS sheet on each immunization was given to the patient. - Healthcare transition statement discussed.. - Follow up in one year for routine physical. Denzel Whalen MD documented [facility] encounter[facility] History of Present illness Narrative* Simone Holley PA-C - 11/04/2022 1:39 PM EDT POST OP Simone Holley PA-C Orthopaedics [address] [id number] Dept: [phone] Ms. Nieves presents today for her 10-14 day visit from: status post right knee arthroscopy, lateral meniscus repair, extensive synovectomy on 10/22/[address] Bryant. She is here today with her father. Established Patient, Follow Up, and Post Op of the Right Knee History: Patient reports no pain. She is doing well postoperatively. Patients rates her condition as improving. The patient denies warmth, discharge, drainage, fevers, chills, sweats. She reports compliance with knee brace, PWB, and dressing/wound care. Using crutches ambulatory aids. Not taking any pain medicine. Patient is ready to begin outpatient PT. The patient states she is going to [facility] in mid-November for school. Review of Systems All other systems reviewed and are negative. Radiographs: Not applicable Physical Examination: Right knee: Appropriate postop appearance No evidence of erythema, warmth, discharge or drainage Incisions clean/dry/intact mild tenderness about the medial and lateral joint line Positive EHL, FHL, AT, GS, Quads, and HS Positive distal pulses Negative Hair's, calf tenderness or palpable cords Knee ROM not formally assessed due to early post operative period Distally SILT S/S/SP/DP/T intact at baseline PROCEDURE: Not applicable Assessment and Plan: S/P right knee arthroscopy, lateral meniscus repair, extensive synovectomy at normal post-operativestage of recovery Patient will begin participating in outpatient physical therapy. Two printed and signed PT orders were given to the patient (one for when home and one for when at school) Continue PWB 40% on operative leg for 6 weeks total (brace locked in extension during ambulation) Continue knee brace; ROM 0-60 for weeks 2 to 4; ROM 0-90 for weeks 4 to 6; after 6 weeks can be full ROM Wean out of brace and crutches over 1-2 week period of time after PWB Post op care discussed, all questions answered. Follow up in 4 weeks for repeat clinical evaluation with Dr. 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 0 10/22/2022 documented as of this encounter (statuses as of 11/05/2022) [facility] of Past illness Narrative* Problem Noted Date Diagnosed Date Resolved Date Tear of lateral meniscus of right knee, current 10/22/2022 10/22/2022 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 0 10/22/2022 documented as of this encounter (statuses as of 11/19/2022) [facility] History of Past illness Narrative* Problem Noted Date Diagnosed Date Resolved Date Tear of lateral meniscus of right knee, current 10/22/2022 10/22/2022 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 0 10/22/2022 documented as of this encounter (statuses as of 11/30/2022) [facility] of Past illness Narrative* Problem Noted Date Diagnosed Date Resolved Date Tear of lateral meniscus of right knee, current 10/22/2022 10/22/2022 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 0 10/22/2022 documented as of this encounter (statuses as of 03/18/2023) [facility] History of Past illness Narrative* Problem Noted Date Diagnosed Date Resolved Date Tear of lateral meniscus of right knee, current 10/22/2022 10/22/2022 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 0 10/22/2022 documented as of this encounter (statuses as of 03/23/2023) [address]18-2023 History of Past illness Narrative* Problem Noted Date Diagnosed Date Resolved Date Tear of lateral meniscus of right knee, current 10/22/2022 10/22/2022 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 0 10/22/2022 documented as of this encounter (statuses as of 05/16/2023) [facility] of Past illness Narrative* Problem Noted Date Diagnosed Date Resolved Date Tear of lateral meniscus of right knee, current 10/22/2022 10/22/2022 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 0 10/22/2022 documented as of this encounter (statuses as of 06/09/2023) [facility] History of Past illness Narrative* Problem Noted Date Diagnosed Date Resolved Date Tear of lateral meniscus of right knee, current 10/22/2022 10/22/2022 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 0 10/22/2022 documented as of this encounter (statuses as of 06/10/2023) [facility] Miscellaneous Notes* Telephone Encounter - Zaira Hutton RN - 10/22/2022 12:38 PM EDT Mom calling She is asking that Dr Logan/Haley could call her to let him know how the surgery went and everything that was found and done She is asking this because she has problems remembering everything and reiterating what was said and done [phone] Gian documented in this encounter[address]18-2023 NoteHNO ID: [id number] Author: Ashleigh Dacosta APRN.INTERPRETATIVE DANCER Service: Anesthesiology Author Type: Nurse White Shoe Examiner Type: Anesthesia Procedure Notes Filed: 10/22/2022 9:37 AM Note Text: ANESTHESIOLOGY PROCEDURE NOTE Airway General Information Procedure Start Time/Medication Administration: 10/22/2022 9:33 AM Patient location during procedure: OR Timeout Performed Pre-procedure: timeout performed Consent Obtained: Yes 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 Staffing INTERPRETATIVE DANCER: Ashleigh Dacosta APRN.INTERPRETATIVE DANCER Performed by: FLORENCIA Indications and Patient Condition Indications for airway management: anesthesia Preoxygenated: yes anesthesia circuit Difficult Mask: No Final Airway Details Final airway type: supraglottic airway Number of attempts at approach: 1 Final Supraglottic Airway: i-gel Size 3 Seal Adequate: yes SIGNATURE: Ashleigh Dacosta APRN.INTERPRETATIVE DANCER PATIENT NAME: Coleen Nieves DATE: October 22, 2022 TIME: 9:37 AM CSN: [id number] Instructions* Patient Instructions* Mare Winkler PA-C - 10/04/2022 12:54 PM EDT PATIENT PREOPERATIVE INSTRUCTIONS Adriana Bryant,* has scheduled you for your procedure at this surgery center: [facility]: [phone] -- [address] [address]. Arrival Time for Surgery: - The Surgery Center or hospital where you are having surgery will call the afternoon before surgery (or Friday for Friday surgery) with a scheduled arrival time. - If you have not heard by 4 pm, please contact the surgery center above. Please read below carefully for your personalized instructions. Dietary Restrictions: - No solid food after midnight. - You may have 12 ounces of clear liquids (water, clear juices such as apple juice or gatorade, carbonated beverages, clear tea, black coffee, jello) until 2 hours before scheduled arrival at facility. Is Patient Diabetic:No Medications: Unless instructed differently below, stay on all of your medications until your surgery. Approved medications to take the morning of surgery with a sip of water: NONE - Please continue your current pain medications. If you start any new medications after today's visit, please contact the surgeon's office. Blood Thinning Medications: - Stop NSAIDS (Ibuprofen, Advil, Aleve, Motrin, Celebrex, Mobic, etc.) 7 days before surgery, as directed by your surgeon. - Stop Aspirin 7 days before surgery, as directed by your surgeon. - Stop Vitamin E, ALL multi-vitamins, herbals and dietary supplements 14 days before surgery. - You may take Tylenol (Acetaminophen) or any of your pain medications that do not contain aspirin or NSAIDS as needed. Important Reminders: - If you use CPAP/BIPAP, bring the machine with you to the surgery center. - Candy, mints, and tobacco products are NOT permitted the morning of surgery. - Hearing aids, dentures and glasses may be worn the morning of surgery. - NO jewelry, body piercings, makeup, hairpins or contacts are to be worn the day of surgery. If you develop symptoms such as a fever, cold, or flu, or have other changes to your health within TWO DAYS of scheduled surgery or the morning of surgery, please contact the surgery center above. Personal Belongings: -Please have photo ID and insurance cards. -If you do not have a copy of advance directives on file with us, please bring a copy with you on the day of surgery. - Leave ALL valuables and money at home or with family members. For Outpatient Procedures: - YOU MUST HAVE A RESPONSIBLE CHAIN MORTISER OPERATOR TAKE YOU HOME. A HOTEL RESERVATION AGENT OR LADLE LINER HELPER CANNOT BE MADE A RESPONSIBLE CHAIN MORTISER OPERATOR. - We recommend that a responsible person stays with you overnight to take care of you. - You cannot stay in a hotel alone after outpatient surgery. You will not be permitted to have yoursurgery, if you do not have someone to take care of you. Please be aware that emergency situations arise, which may delay or change your surgical time. If this happens, we will notify you as soon as possible and regret any inconvenience. If you already have an Advance Directive, please fax a copy to [phone] or email to for it to be added to your chart. If you do not have an Advance Directive, you can find the appropriate form and more information at [email or web address]. We recommend that youcomplete the Advance Directive form found on the website and bring it with you the day of your surgery. It can be witnessed and scanned into your chart that day. Mrae Winkler PA-C documented in this encounter[facility]06-[facility] History and physical note * Mare Winkler PA-C - 10/04/2022 12:45 PM EDT HISTORY AND PHYSICAL EXAMINATION SERVICE DATE: 10/04/2022 SERVICE TIME: 12:59 PM PRIMARY CARE PHYSICIAN: Denzel Whalen MD This is a virtual visit using [employer] video visit. It required patient-provider interaction for themedical decision making as documented below. I have communicated my name and active licensure. The patient's identity and physical location wereverified at the time of this visit. Either the patient or their legal employee representative has been informed of the risks and benefits of and alternatives to treatment through a remote evaluation and consents to proceed with the evaluation remotely. This is a virtual visit using [employer] video visit. It required patient-provider interaction for themedical decision making as documented below. REASON FOR VISIT: Coleen Nieves is a 17 year old female who is scheduled for Procedure(s): ARTHROSCOPY, KNEE MENISCUS REPAIR MEDIAL OR LATERAL (Right) at the request of Dr. Adriaan Bryant for consultation. My final recommendation will be communicated back to the requesting physicianby way of shared medical record or letter. Subjective The patient has the following: ACTIVE PROBLEM LIST Migraine Flat Foot COVID-19 Immunization Status Overdue - COVID-19 VACCINE (1) Overdue - never done No completion, postpone, frequency change, or communication history exists for this topic. Patient reports being not vaccinated against COVID-19. CHIEF COMPLAINT: Right Knee Pain HPI: Patient is an 17 year old female presenting with right knee pain that she has had since believed injury in June or July this year while playing softball. She believes the meniscus is torn as it feels the same as it has in the past. She states two prior torn meniscus surgeries in the past. Patient rates pain at 4/10 currently and at its worst pain is rated at 7/10 and is described as dull and achy but can be sharp and stabbing. Pain is better with rest and worse with activity and with particular movements and positions. She is currently using a brace and not needing to use crutches atthis time. Patient denies any other specific radiating, alleviating or aggravating factors. REVIEW OF SYSTEMS: General: No weight loss, malaise or fevers. Neurological: No history of TIA's, stroke, TICKETING CLERK tumor, impaired sensorium, hemiplegia, paraplegia orquadraplegia. No neurological symptoms or problems. Respiratory: No history of current cough or dyspnea, or pneumonia in the past 6 weeks. No history of respiratory/pulmonary symptoms or problems. Cardiovascular: No history of HTN requiring medication, no history of angina, CHF, [place], cardiac surgery or stents. Denies rest pain, gangrene or revascularization/amputation for PVD. No history of cardiovascular symptoms or problems. GI: No history of GI symptoms or problems. No history of esophageal varices, recent ascites, or ETOH greater than 2 drinks per day. : No history of dysuria, frequency or incontinence, stones or chronic kidney disease. No difficulty urinating, nocturia > 1 time per night or hematuria. CAR RENTAL SALES ASSISTANT: Negative for abnormal vaginal bleeding, abnormal vaginal discharge. Endocrine: No history of diabetes. Has not taken steroids within the past 30 days. No history of endocrinological symptoms or problems. Hematology: No history of bleeding or clotting disorder. Patient is not taking anti-coagulation or platelet medications. No history of hematological symptoms or problems. Oncology: No history of CA metastasis, chemo within 30 days, or radiotherapy within 90 days. No history of oncological symptoms or problems. Psych: No history of psychiatric symptoms or problems. Musculoskeletal: See HPI. Skin: Negative for lesions, rash and itching. PAST MEDICAL HISTORY Diagnosis Date Concussion 2013 a table fell onher (caused by the dog knocking it over) CT Negative Fracture of clavicle at PAST SURGICAL HISTORY Procedure Laterality Date KNEE ARTHROSCOP MENISCUS REPAIR MED/LAT Right 02/24/2019 PAST SURGICAL HISTORY OF 2020 right knee meniscus FAMILY HISTORY Problem Relation Age of Onset Hypertension Maternal Grandmother other (migraines) Maternal Grandmother Anesthesia Problems No Family History Blood Clots No Family History Clotting Disorder No Family History Social History Tobacco Use Smoking status: Never Passive exposure: Yes Smokeless tobacco: Never Tobacco comments: mom vapes Substance Use Topics Alcohol use: Not Currently Prior to Admission medications as of 10/04/22 1255 Medication Sig Last Dose Taking MULTIVITAMIN ORAL Take by mouth. Taking Yes FINACEA 15 % foam as needed. Taking Yes No medication comments found. ALLERGIES No Known Allergies Objective PHYSICAL EXAM: (if completed, exam performed via video enabled technology) General: alert and oriented and healthy appearance. Pertinent negatives noted - not distressed. Skin: normal color, no rash or lesions. HEENT: Head is normocephalic, no abnormality or lesion noted Eyes show no injection and visual acuity is grossly normal Ears note grossly normal hearing Nose exam notes external nose is normal without rhinorrhea Oropharynx exam notes moist mucous membranes with no noted tonsillar hypertrophy, erythema or edema Uvula is midline. . Cardiovascular: Patient palpated radial pulse, regular when counted aloud by patient. Capillary refill is less than 3 seconds in bilateral upper extremities. . Respiratory: Equal chest rise with normal respiratory effort . Abdomen: soft. Pertinent negatives noted - not distended and not tender. No pain upon palpation by patient . Extremities: no deformity, no edema or tenderness, no joint swelling or clubbing. Neurological: normal cognition and motor skills. Gait stated to be normal per patient . PAIN ASSESSMENT: VITALS: BP [120/84 on 06/27/2022 reviewed as normal[ Pulse 84 Temp [does not have a thermometer available - feeling well[ Resp 18 Ht 5' 10 (1.78m) Wt 175 lb (79.4kg) LMP 09/26/2022 BMI 25.11 kg/(m^2). Diagnostic tests reviewed for today's visit: Lab Value Units Date High Low HB No results within date range. HCT No results within date range. WBC No results within date range. PLT No results within date range. NA No results within date range. K No results within date range. GLUC No results within date range. BUN No results within date range. CREAT No results within date range. PTSEC No results within date range. INR No results within date range. APTT No results within date range. ALT No results within date range. AST No results within date range. TBILI No results within date range. TSH No results within date range. Lab Value Units Date High Low HCGQT No results within date range. UHCG No results within date range. HCG, BODY* No results within date range. Lab Value Units Date High Low ABORHD No results within date range. ABSCREEN No results within date range. No results found for: HBA1C No results found for this or any previous visit (from the past 8760 hour(s)). No results found for this or any previous visit (from the past 58631 hour(s)). Assessment There is no known pertinent medical condition which may affect coby-operative course Melara Activity Status Index: METS: Run a short distance (8.00 METs) DASI Score: 8 (Limited due to knee pain ) Patient denies any chest pain or undue shortness of breath with the above physical activity. Clinical Frailty Scale: 2. Well STOP-Bang Score: Snores loudly Denies feeling tired, fatigued, or sleepy during the daytime Has not been observed to stop breathing or choking/gasping during sleep Denies having high blood pressure BMI less than or equal to 35 kg/m^2 Patient 50 years old or younger Does not have a large neck Non-male patient STOP-Bang Score: 1 [id number] Score: [id number] Score: 0 ASA Class: 1 ANESTHESIA FINDINGS: Intubation History: No history of difficult intubation. No abnormal airway history Significant Anesthesia Considerations: none Airway History: No prior anesthesia report available for review at this time. No history of difficult airway No abnormal airway history I - PHYSICAL EVALUATION AIRWAY Patient intubated: No. Tracheostomy tube not present Mallampati: I. TM distance: >3 FB. Neck ROM: full ROM without neurological symptoms. Mouth opening: adequate. Short neck: no. Thick neck: no Boyd present: no Lip Bite Test: I Microretrognathia/Micronagthia/Recessed Chin: No DENTAL Dental findings: teeth intact. Additional comments: Denies any chipped or broken teeth. Denies any dental pain or infections. . II - ANESTHESIA PLAN ASA Score: 1 Anesthetic Plan: general Beta To Monitoring Plan Post Procedure Analgesic Plan Prepared for Surgery: optimally prepared for surgery. CONSULTS: Patient does not require consults for optimization at this time Planned Anesthetic: general The Following Tests/Procedures Have Been Initiated: Orders Placed This Encounter MULTIVITAMIN ORAL Sig: Take by mouth. Instructions Given to Patient: Instructions located in the after visit summary. Patient given verbal and written preop instructions and voices comprehension and compliance. SIGNATURE: Mare Winkler PA-C PATIENT NAME: Coleen Nieves DATE: October 04, 2022 TIME: 12:45 PM PAGER/CONTACT #: documented in this encounterMary[facility]06-[facility] History of Present illness Narrative* Adriana Givens Annette, DO - 09/18/2022 3:32 PM EDTAssociated Order(s): Large Joint Arthro/Inj Post-Procedure Diagnose(s): Hoffa's knee joint disease (HCC); Tear of lateral meniscus of right knee, current, unspecified tear type, initial encounter Images from the original note were not included. Large Joint Arthro/Inj Informed Consent Consent Obtained: Verbal Hoyt Protocol A moment to CARE was completed. SIGN IN Personnel directly involved with the procedure wore the appropriate PPE. Special Equipment: N/A Patient/Surrogate Stated/Verified: Patient name, Date of , Relevant allergies and Intended procedure TIME OUT Intended patient and procedure match the source document(s). Consent documented and matches the intended procedure. Relevant labs, photos, and/or imaging studies have been reviewed. No correct side/site applicable for marking and visibility. Medications required for procedure verified. Fire risk assessed and interventions discussed. No implant(s) inserted. 09/18/2022 4:09 PM The procedure site was prepped in the usual sterile fashion. Medications: 10 mg triamcinolone acetonide 10 mg/mL Anesthetics: 1 mL BUPivacaine (PF) 0.5 % (5 mg/mL) Outcome: Tolerated well, no immediate complications Post-injection instructions were reviewed with the patient and the patient voiced understanding of these instructions. SIGN OUT All instruments, equipment, possible retained foreign bodies accounted for. Follow Up Visit Chief Complaint Coleen Nieves is a 17 year old female who presents today for follow up office visit. Patient presents with: Right Knee - Follow Up, Knee Pain History of Present Illness PAIN EVALUATION 09/18/2022 1530 Pain Level: 3 Pain Location: Knee-Right Description: Aching;Sore;Stabbing Duration Amount of Time: -- ongoing Frequency: Intermittent Intervention/Comfort measure: -- knee brace, NSAIDs PRN HPI: Coleen Nieves is a 17 year old female for a follow up visit right knee pain. Patient is here to go over MRI results and discuss next steps. Pain history is noted as above. Denies calf pain, numbness, tingling, fever, chills or other constitutional symptoms. Is there any overall improvement in your condition? No Any new injury, since being seen last: No REVIEW OF SYMPTOMS: Patient did not have, and does not currently have, any weight loss, malaise, fever, chills, headache, chest pain, chest pressure, palpitations, cough, shortness of breath, orthopnea, paroxsymal nocturnal dyspnea, nausea, vomiting, diarrhea, constipation, melena, hematochezia, urinary difficulties, prolonged bleeding, easily bruising, heat or cold intolerance, new onset joint pain or swelling, newonset extremity weakness or numbness, new onset auditory or visual disturbances, lightheadedness, dizziness, partial loss of consciousness or full loss of consciousness. Current Outpatient Medications Medication Sig FINACEA 15 % foam as needed. No current facility-administered medications for this visit. Physical Exam Vitals: [facility] 06/27/2022 Psych: Pleasant, good affect and mood General Appearance: Well appearing, alert, in no acute distress, well-hydrated, well nourished.. Skin: Skin color, texture, turgor normal, no suspicious rashes or lesions. Peripheral Pulses: Normal. Neurologic: Gait normal. Reflexes normal and symmetric. Sensation grossly intact.. Lymph Nodes: No cervical lymphadenopathy, No supraclavicular lymphadenopathy, No axillary lymphadenopathy., and No inguinal lymphadenopathy.. Respiratory: No recent pulmonary infection, hemoptysis, chronic cough, or shortness of breath at rest Rheumatologic: Joint deformities: right knee pain Right Knee Exam Tenderness The patient is experiencing tenderness in the lateral joint line. Range of Motion Extension: normal Flexion: normal Tests Chance: Anterior - negative Posterior - negative Drawer: Anterior - negative Posterior - negative Other Erythema: absent Sensation: normal Pulse: present Swelling: none Comments: Pain ant lat jt line Left Knee Exam Left knee exam is normal. Muscle Strength The patient has normal left knee strength. Tenderness The patient is experiencing no tenderness. Range of Motion Extension: normal Flexion: normal Tests Chance: Anterior - negative Posterior - negative Drawer: Anterior - negative Posterior - negative Other Erythema: absent Sensation: normal Pulse: present Swelling: none Comments: Neg homans bilaterally Assessment and Plan Radiographs: I have reviewed the images with the patient and family. Impression: Encounter Diagnosis ICD-10-CM 1. Tear of lateral meniscus of right knee, current, unspecified tear type, initial encounter S83.281A 2. 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 We discussed strategies for decreasing pain and improving strength, stability and motion. Patient's questions were answered in detailed. Patient verbalizes understanding and agrees with the treatment plan as discussed. Risks and benefits vs alternatives to treatment were discussed with patient. Risks including but not limited to blood loss, blood clot, infection, neurovascular injury, failure of procedure, need forrevision operation, loss of life and loss of limb. Patient aware of risks and benefits and agrees to proceed with written consent for surgical intervention. Discussed lat men repair vs meniscectomy vs synovectomy Patient aware and in agreement of plan. All questions answered. Discussed ascertain if injection decreases her pain, can play this Adriana Bryant D.O. M.P.H. documented in this encounterMary[facility]03-31-[facility]23 History of Present illness Narrative* Adriana Bryant DO - 07/05/2022 11:29 AM EDT Images from the original note were not included. Reason for Visit/Chief Complaint Coleen Nieves is a 17 year old female who presents today for a new evaluation of following complaint: Patient presents with: Right Knee - New, Knee Pain History of Present Illness: PAIN EVALUATION 07/05/2022 1128 Pain Level: 8 with activity Pain Location: Knee-Right Description: Aching;Sore swelling Duration Amount of Time: 1 Duration Units: Weeks Frequency: Intermittent Intervention/Comfort measure: -- icing, stretching, brace HPI: Coleen Nieves is a 17 year old female presenting today with right knee pain. Patient had meniscus repair done years ago, has recently started to noticed pain and swelling in the knee. 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 Pain history is noted as above. Denies calf pain, numbness, tingling,fever, chills or other constitutional symptoms. Previous Treatments: Ice: Yes Heat: No Brace: Yes, post op brace NSAIDs: No Injections: No Surgeries: Yes, acl men Physical Therapy: No Review of Systems: Patient did not have, and does not currently have, any weight loss, malaise, fever, chills, headache, chest pain, chest pressure, palpitations, cough, shortness of breath, orthopnea, paroxsymal nocturnal dyspnea, nausea, vomiting, diarrhea, constipation, melena, hematochezia, urinary difficulties, prolonged bleeding, easily bruising, heat or cold intolerance, new onset joint pain or swelling, newonset extremity weakness or numbness, new onset auditory or visual disturbances, lightheadedness, dizziness, partial loss of consciousness or full loss of consciousness. Current Outpatient Medications on File Prior to Visit Medication Sig fluticasone (FLONASE ALLERGY RELIEF) 50 mcg/actuation nasal spray Use 2 Sprays in each nostril oncedaily. FINACEA 15 % foam as needed. No current facility-administered medications on file prior to visit. ALLERGIES No Known Allergies Physical Exam: Vitals: [facility] 06/27/2022 Psych: Pleasant, good affect and mood General Appearance: Well appearing, alert, in no acute distress, well-hydrated, well nourished.. Skin: Skin color, texture, turgor normal, no suspicious rashes or lesions. Peripheral Pulses: Normal. Neurologic: Gait normal. Reflexes normal and symmetric. Sensation grossly intact.. Lymph Nodes: No cervical lymphadenopathy, No supraclavicular lymphadenopathy, No axillary lymphadenopathy., and No inguinal lymphadenopathy.. Respiratory: No recent pulmonary infection, hemoptysis, chronic cough, or shortness of breath at rest Rheumatologic: Joint deformities: right knee pain Right Knee Exam Tenderness The patient is experiencing tenderness in the lateral joint line. Range of Motion Extension: normal Flexion: normal Tests Shakira: Lateral - positive Chance: Anterior - negative Posterior - negative Drawer: Anterior - negative Posterior - negative Other Erythema: absent Sensation: normal Pulse: present Swelling: none Left Knee Exam Left knee exam is normal. Muscle Strength The patient has normal left knee strength. Tenderness The patient is experiencing no tenderness. Range of Motion Extension: normal Flexion: normal Tests Chance: Anterior - negative Posterior - negative Drawer: Anterior - negative Posterior - negative Other Erythema: absent Sensation: normal Pulse: present Swelling: none Comments: Neg homans bilaterally Imaging: Last XR Knee - Impression Only XR KNEE GENERAL 4V AP BOTH/PA BOTH/LAT/MERC RIGHT Exam End: 07/05/2022 11:42 AM (Final result) Impression: IMPRESSION: Moderate suprapatellar effusion and medial knee soft tissue swelling. 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: KELECHI Transcribe Date/Time: Jul 05 2022 12:09P ... Assessment and Plan: Impression: Encounter Diagnosis ICD-10-CM 1. Tear of lateral meniscus of right knee, current, unspecified tear type, initial encounter S83.281A Plan: Today, in detail, through a thorough evaluation, we discussed possible etiologies of pain and our plans for further diagnostic and therapeutic interventions. We discussed strategies for decreasing pain and improving strength, stability and motion. Patient's questions were answered in detailed. Patient verbalizes understanding and agrees with the treatment plan as discussed. History of previous repair, offered steroid injection, MRI, but patient deferred as is not going tomiss this season from mri/fix standpoint and initially wanted an injection, then changed her mind Brace Strengthening If wants injection or surgery told to contact us for next steps. Patient aware and in agreement of plan. All questions answered. documented in this encounterMary[facility] Hospital03-31-2023 Miscellaneous Notes* [facility] - Angelica Ann RT(R) - 07/05/2022 8:10 AM EDT Radiology Service Progress Note PATIENT NAME: Coleen Nieves DATE OF SERVICE: July 05, 2022 TIME: 12:13 PM PATIENT IDENTITY VERIFICATION COMPLETED USING TWO (2) IDENTIFIERS: Name and Date of confirmedby patient verbally. FALL SCREENING: Has the patient had 2 falls in the last year or 1 fall with injury or currently using an Ambulatory Assistive Device (Walker, Cane, Wheelchair, Crutches, etc.)? No PATIENT GENDER DATA: Female. status: : No status: NO. PATIENT RELEVANT IMPLANT DATA REVIEWED: Not Applicable RADIOLOGY DEPARTMENT: General X-ray: Exam(s) Completed: Lower Extremity X- Ray(s): Knee, AP / Lat / Tunne / Merchant Right PERIPHERAL IV DATA: Not applicable SIGNED BY: RT Ana(R) July 05, 2022 12:13 PM documented in this encounterMarymount Hospital03-31-2023 Progress note* [facility] - Angelica Ann RT(R) - 07/05/2022 8:10 AM EDT Radiology Service Progress Note PATIENT NAME: Coleen Nieves DATE OF SERVICE: July 05, 2022 TIME: 12:13 PM PATIENT IDENTITY VERIFICATION COMPLETED USING TWO (2) IDENTIFIERS: Name and Date of confirmedby patient verbally. FALL SCREENING: Has the patient had 2 falls in the last year or 1 fall with injury or currently using an Ambulatory Assistive Device (Walker, Cane, Wheelchair, Crutches, etc.)? No PATIENT GENDER DATA: Female. status: : No status: NO. PATIENT RELEVANT IMPLANT DATA REVIEWED: Not Applicable RADIOLOGY DEPARTMENT: General X-ray: Exam(s) Completed: Lower Extremity X- Ray(s): Knee, AP / Lat / Tunne / Merchant Right PERIPHERAL IV DATA: Not applicable SIGNED BY: RT Ana(R) July 05, 2022 12:13 PM [facility] History of Present illness Narrative* Tierra Gaffney APRN.CLEARANCE REPRESENTATIVE - 06/27/2022 2:15 PM EDT PEDIATRIC SICK VISIT SERVICE DATE: 06/27/2022 SUBJECTIVE: Coleen Nieves is a 17 year old accompanied by father. Patient presents with: Check ears : Feels like ears are full. Denies any pain. Decreased hearing. Nasal Congestion: Onset in March, Has never resolved. No recent fevers. Appt scheduled with ENT in July Trialed Flonase for over one week with no relief Tried OTC oral antihistamine with no relief No relief with sudafed History was obtained from: father Current symptoms: FEVER: not present at this time EYE SYMPTOMS: not present at this time NASAL CONGESTION: present since March, may have improved for 1-2 weeks EAR SYMPTOMS: not present at this time, but c/o decreased hearing and ears feeling stuffy bilaterally COUGH: intermittent cough for several months SORE THROAT: not present at this time HEADACHE: not present at this time, denies sinus pain VOMITING: not present at this time NAUSEA: not present at this time DIARRHEA: not present at this time ABDOMINAL PAIN: not present at this time RASH: not present at this time GENERAL: Decreased activity Appetite: no significant change Sick contacts: No known sick contacts HISTORY: ACTIVE PROBLEM LIST Migraine Flat Foot PAST MEDICAL HISTORY Diagnosis Date Concussion 2013 a table fell onher (caused by the dog knocking it over) CT Negative Fracture of clavicle at PAST SURGICAL HISTORY Procedure Laterality Date KNEE ARTHROSCOP MENISCUS REPAIR MED/LAT Right 02/24/2019 Allergies: ALLERGIES No Known Allergies Medications: FINACEA 15 % foam as needed. fluticasone (FLONASE ALLERGY RELIEF) 50 mcg/actuation nasal spray Use 2 Sprays in each nostril oncedaily. amoxicillin-clavulanic acid (AUGMENTIN) 875-125 mg per tablet Take 1 tablet by mouth twice daily for 5 days. OBJECTIVE: BP 120/84 Pulse 100 Temp 36.8 C (98.3 F) (Temporal Artery) Resp 20 Wt 81.4 kg (179 lb 8 oz) LMP 06/27/2022 General: alert and active in no apparent distress Eyes: conjunctiva clear, PERRL Ears: TMs translucent bilaterally, normal landmarks noted Nose: mucosal erythema, mucosal edema OP: tonsils 3+ bilaterally, no exudates, moist mucous membranes Neck: supple, no adenopathy Lungs: clear to auscultation bilaterally, good air exchange, no wheezes or crackles CVS: Normal rate, regular rhythm, no murmur Skin: No rashes, lesions or skin changes ASSESSMENT/PLAN: Encounter Diagnosis ICD-10-CM 1. Sinusitis, unspecified chronicity, unspecified location J32.9 amoxicillin- clavulanic acid (AUGMENTIN) 875-125 mg per tablet 2. Nasal congestion R09.81 fluticasone (FLONASE ALLERGY RELIEF) 50 mcg/actuation nasal spray 3. Tonsillar hypertrophy J35.1 fluticasone (FLONASE ALLERGY RELIEF) 50 mcg/actuation nasal spray - Start antbiotics - Start Flonase daily - August trial nasal saline as needed - Keep ENT appt as scheduled - Return to clinic for persistent or worsening symptoms, or other concerns. SIGNATURE: Tierra Gaffney APRN.CNP PATIENT NAME: Coleen Nieves DATE: June 27, 2022 TIME: 1:43 PM documented in this encounterMary[facility] Hospital01-24-2023 History of Present illness Narrative* Denzel Whalen MD - 04/30/2022 3:11 PM EST Coleen Nieves is a 16-year-old female who presents to the office today with complaints of sore throat. Patient has complaints of dysphonia. No complaints of trismus. History is negative for fever,headache, otalgia, eye injection or discharge, abdominal pain, nausea, vomiting or diarrhea. Previous episodes of pharyngitis: January 09, 2022. Prior to this the last office visit for any typeof pharyngitis symptoms was August 04, 2012. ACTIVE PROBLEM LIST Migraine Flat Foot PAST MEDICAL HISTORY Diagnosis Date Concussion 2013 a table fell onher (caused by the dog knocking it over) CT Negative Fracture of clavicle at PAST SURGICAL HISTORY Procedure Laterality Date KNEE ARTHROSCOP MENISCUS REPAIR MED/LAT Right 02/24/2019 ALLERGIES No Known Allergies 04/30/22 1226 Pulse: 80 Resp: 14 Temp: 36.6 C (97.9 F) TempSrc: Temporal Weight: 82.6 kg (182 lb) GENERAL: alert and active in no apparent distress, nontoxic-appearing HEAD: Normocephalic, atraumatic EYES: No scleral icterus is present EARS: External auditory canals are free of lesions bilaterally. Tympanic membranes are intact bilaterally without evidence of fluid in the middle ear space NOSE/SINUSES : Nares normal without discharge OROPHARYNX:moist mucous membranes, tonsils are 3+ without exudate, erythema is present, no palatal petechiae are present, no trismus is present NECK: Positive for tender anterior cervical adenopathy bilaterally. No masses are present in the suprasternal notch. No supraclavicular adenopathy is present. VOICE: Negative for hoarseness. Positive for mild dysphonia. CARDIOVASCULAR : Regular Rate and Rhythm without murmurs or clicks, well perfused LUNGS: clear to auscultation, excellent air exchange, no stridor or stertor are present easy respirations without grunting/flaring/retracting. ABDOMEN : Abdomen is soft, nontender, without organomegaly or masses. MUSCULOSKELETAL: Extremities with FROM and no problems identified. EXTREMITIES: No clubbing, cyanosis, or edema. NEUROLOGICAL : Muscle tone normal and Normal age appropriate gait SKIN : Negative for jaundice. Negative for rash. Normal skin turgor Component Latest Ref Rng & Units 04/30/2022 Strep A (POCT) Negative Negative Procedural Control Valid Impression: (J02.9) Sore throat (primary encounter diagnosis) (J35.1) Tonsillar hypertrophy Plan: Office Visit on 04/30/22 LELO-CASTANEDA VCA IGM STREP A MOLECULAR (POC) predniSONE (DELTASONE) 20 mg tablet Education given. Course of illness/condition and rationale for treatment discussed. I spent a total of 25 minutes on the date of the service which included preparing to see the patient, [id number] patient care, completing clinical documentation, obtaining and/or reviewing separately obtained history, performing a medically appropriate examination, counseling and educating the pat ient/family/caregiver, and ordering medications, tests, or procedures. Follow-up prn, clinical update when we notify regarding the Lelo-Castaneda virus IgM titer Denzel Whalen MD [facility] Department of [facility], [facility] documented in this encounterMary[facility] Hospital10-06-2022 Miscellaneous Notes* Telephone Encounter - Trinidad Pierce RN - 01/10/2022 11:41 AM EDT Mother notified, voiced understanding Trinidad Pierce RN * Telephone Encounter - Trinidad Pierce RN - 01/10/2022 11:40 AM EDT ----- Message from Denzel Whalen MD sent at 01/10/2022 10:10 AM EDT ----- Please notify the patient the liver enzymes are normal, Monospot is negative and complete blood count with differential is normal. Patient should follow-up on Friday or Friday if no significant improvement in symptoms, sooner if needed. Denzel Whalen M.D. documented in this encounterMary[facility]10-05-2022 History of Present illness Narrative* Denzel Whalen MD - 01/09/2022 11:15 AM EDT 16-year-old female presents to the office today with complaints of sore throat. Seen in urgent careon January 07, 2022. Notes reviewed. Testing for group A strep [id number] negative. Additionally the patient was swabbed for COVID/flu A/B/RSV. All negative. Patient continues to complain of significant sore throat. Difficulty eating. No complaints of dysphagia at this time. No complaints consistent with trismus. No referred ear pain. No nausea, vomiting or diarrhea. ACTIVE PROBLEM LIST Migraine Flat Foot PAST MEDICAL HISTORY Diagnosis Date Concussion 2013 a table fell onher (caused by the dog knocking it over) CT Negative Fracture of clavicle at PAST SURGICAL HISTORY Procedure Laterality Date KNEE ARTHROSCOP MENISCUS REPAIR MED/LAT Right 02/24/2019 ALLERGIES No Known Allergies 01/09/22 1128 Pulse: 82 Resp: 16 Temp: 36.3 C (97.4 F) TempSrc: Temporal Weight: 84 kg (185 lb 4 oz) GENERAL: alert and active in no apparent distress, nontoxic-appearing HEAD: Normocephalic, atraumatic EYES: No preseptal edema or erythema present. No scleral icterus is present. EARS: External auditory canals are free of lesions bilaterally. Tympanic membranes are intact bilaterally without evidence of fluid in the middle ear space NOSE/SINUSES : Nares normal without discharge OROPHARYNX:moist mucous membranes, tonsils are 4+ with exudate but the uvula is midline and the oropharynx is symmetric. No trismus is present. VOICE: Very minimal dysphonia. No hoarseness. Voice is strong NECK: Positive for bilateral anterior cervical adenopathy. No masses are present in the suprasternal notch. No supraclavicular adenopathy is present. CARDIOVASCULAR : Regular Rate and Rhythm without murmurs or clicks, well perfused LUNGS: clear to auscultation, excellent air exchange, resonant to percussion, easy respirations without grunting/flaring/retracting. ABDOMEN : Abdomen is soft, nontender, without organomegaly or masses. MUSCULOSKELETAL: Extremities with FROM and no problems identified. EXTREMITIES: Normal exam of the extremities. No clubbing, cyanosis, or edema. NEUROLOGICAL : Muscle tone normal and Normal age appropriate gait SKIN : normal color, no jaundice or rash and Normal skin turgor Impression: (J02.9) Exudative pharyngitis (primary encounter diagnosis) Plan: Office Visit on 01/09/22 AST/SGOT BLD ALT/SGPT MONOTEST, INFECTIOUS MONO CBC + DIFF prednisoLONE sodium phosphate (ORAPRED) 15 mg/5 mL (3 mg/mL) oral liquid Education given. Course of illness/condition and rationale for treatment discussed. I spent a total of 25 minutes on the date of the service which included preparing to see the patient, [id number] patient care, completing clinical documentation, obtaining and/or reviewing separately obtained history, performing a medically appropriate examination, counseling and educating the pat ient/family/caregiver, and ordering medications, tests, or procedures. Follow-up Worsening symptoms Denzel Whalen MD [facility] Department of [facility]s, [facility] documented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 Relationship Specialty Start Date End Date Provider, MD Magdalena [address] [place] [address] PCP - General Pediatrics 07/17/23 Relocation Counselor Relationship Specialty Start Date End Date Provider, [place] [address] PCP - General Pediatrics 07/17/23 Relocation Counselor Relationship Specialty Start Date End Date Provider, MD Magdal[address] [address] PCP - General Pediatrics 07/17/23 Karan Rogers, Charly, PT, DPT Physical Therapist Physical Therapy 05/13/24 Relocation Counselor Relationship Specialty Start Date End Date Provider, MD Magdal[address] [address] PCP - General Pediatrics 07/17/23 Karan Ramírez468, Charly, PT, DPT Physical Therapist Physical Therapy 05/13/24 Relocation Counselor Relationship Specialty Start Date End Date Denzel Whalen MD [address] [place], [place] [address] PCP - General 04 Relocation Counselor Relationship Specialty Start Date End Date Denzel Whalen MD [address] [place], [place] [id number] PCP - General 04 Relocation Counselor Relationship Specialty Start Date End Date Denzel Whalen MD [address] [place], [place] [address] PCP - General 04 Relocation Counselor Relationship Specialty Start Date End Date Denzel Whalen MD [address] [place], [place] [address] PCP - General 04 Relocation Counselor Relationship Specialty Start Date End Date Denzel Whalen MD [address] [place], [place] [address] PCP - General 04 Relocation Counselor Relationship Specialty Start Date End Date Denzel Whalen MD [address] [place], [place] [address] PCP - General 04 Goals (unrecognized section and content) Goals may be documented in a n alternate sectionGoals may be documented in an alternate section INFORMATION SOURCE (unrecogn ized section and content) DATE CREATED AUTHOR 10/22/2022 [facility] DATE CREATED AUTHOR AUTHOR'S ORGANIZ ATION 04/03/2023 [facility] DATE CREATED AUTHOR AUTHOR'S ORGANIZ ATION 12/11/2023 [facility] DATE CREATED AUTHOR AUTHOR'S ORGANIZ ATION 06/07/2024 [facility] DATE CREATED AUTHOR AUTHOR'S ORGANIZ ATION 09/24/2024 [facility] Scheduled Active and Recently Administ ered Medications (unrecognized section and content) Medication Order 05/08/2024 05/09/2024 05/10/2024 acetaminophen tablet 500 mg (COMPLETED) 500 mg, Oral, NOW, 1 dose, On Fri05/10/24 at 1958 2045 (Given - Provid er: Julieth Saucedo RN) orphenadrine (NORFLEX) 12 hr tablet 100 mg (COMPLETED) 100 mg, Oral, NOW, 1 dose, On Fri05/10/24 at 2110, Caution: Do not crush or chew. 2046 (Given - Provid er: Julieth Saucedo RN) Scheduled Medication Order 05/11/2024 05/12/2024 05/13/2024 Acetaminophen (OFIRMEV) IVPB 1,000 mg (COMPLETED) 1,000 mg, Intravenous, Administer over 15 Minutes, On Sada 05/13/24 at 0834, ONCE, 1 dose 0822 (New Bag - Prov ider: Elvin Campbell RN)0931 (Infusion Complete - Provider: Milady Urena LPN) metoclopramide (REGLAN) tablet 10 mg (COMPLETED) 10 mg, Oral, NOW, 1 dose, On Sada 05/13/24 at 0834 0822 (Given - Provid er: Elvin Campbell RN) ondansetron hcl (ZOFRAN) injection 4 mg (COMPLETED) 4 mg, IV Push, NOW, 1 dose, On Sada 05/13/24 at 0305, Caution: This medication looks and/or sounds like another medication. 0414 (Given - Provid er: Nba Matias RN) sodium chloride 0.9% bolus 0.9 % solution 1,000 mL (COMPLETED) 1,000 mL, Intravenous, Administer over 31 Minutes, On Sada 05/13/24 at 0305, ONCE, 1 dose 0416 (New Bag - Prov ider: Nba Matias RN)0631 (Stopped - Provider: Nba Matias RN) FOR RECORDS PERTAINING TO PATIENTS WHO ARE OR HAVE BEEN ENROLLED IN A CHEMICAL DEPENDENCY/SUBSTANCEABUSE PROGRAM, SOME INFORMATION MAY BE OMITTED. This clinical summary was aggregated from multiple sources. Caution should be exercised in using it in the provision of clinical care. This summary normalizes information from multiple sources, and as a consequence, information in this document may materially change the coding, format and clinical context of patient data. In addition, data may be omitted in some cases. CLINICAL DECISIONS SHOULD BE BASED ON THE PRIMARY CLINICAL RECORDS. [email or web address] provides no warranty or guarantee of the accuracy or completeness of information in this document.
[2025-03-04 16:35] LABS: AST(SGOT) 20 U/L (<=31); Alanine Aminotransfer ALT/SGPT 13 U/L (<=34); Albumin, Serum 4.3 g/dL (3.5-5.0); Alkaline Phosphatase 56 U/L (35-104); Anion Gap 14 (5-15); BUN 10 mg/dL (4-19); BUN/Creat Ratio 11.2 RATIO (10-20); Calcium,Total 8.9 mg/dL (7.6-11.0); Carbon Dioxide 19.6 mmol/L (21.0-32.0); Chloride 99 mmol/L (98-108); Estimated Creatinine Clearance 102.45 ml/min (50-250); Globulin 3.0 g/dL (2.2-4.2); Glucose 103 mg/dL (70-99); Lipase 44 U/L (13-75); Potassium 3.7 mmol/L (3.3-5.1); Troponin T High Sensitivity < 6 ng/L (<=14)
[2025-03-04 17:12] LABS: Red Blood Cells-Urine 0-5 SEEN /hpf (0-5); Squamous Epithelial Cells - UA 0-5 SEEN /hpf (5-10)
== END 2025-03-04 18:56 | disposition home or self-care (01) ==
PROVIDERS: Emergency Provider Emergency Medicine; PCP Pediatrics; Visit Provider Emergency Medicine
DX: N39.0 Urinary tract infection, site not specified (principal); R19.7 Diarrhea, unspecified; E86.0 Dehydration; R11.2 Nausea with vomiting, unspecified
CPT/HCPCS: 80053; 81001; 83690; 84484; 84703; 85025; 87086; 87088; 87631; 96361; 96365; 96375; 99285; A4216; J2405